=== PATIENT | male | born 1975 | race Hispanic/Latino ===

== ENCOUNTER 2019-01-03 15:30 | Emergency (ER) | payer MEDICARE, SELFPAY ==
[2019-01-03 16:04] LABS: #Basophils 0.1 thou/uL (0.0-0.2); #Eosinphils 0.5 thou/uL (0.0-0.7); #Lymphocytes 2.7 thou/uL (1.20-3.40); #Monocytes 0.6 thou/uL (0.11-0.59); #Neutrophils 5.1 thou/uL (1.40-6.50); %Eosinophils 5.4 % (0.0-10.0); %Lymphocytes 30.5 % (21.0-51.0); %Monocytes 6.4 % (0.0-10.0); %Neutrophils 56.7 % (42.0-75.0); Hemoglobin 11.4 g/dL (14.0-18.0); Mean Corpuscular HGB CONC 34.1 g/dL (32.0-36.0); Mean Corpuscular Hemoglobin 32.3 pg (27.0-31.0); Mean Corpuscular Volume 94.5 fL (78.0-98.0); Mean Platelet Volume 7.1 fL (7.4-10.4); Platelet Count 333 thou/uL (130-400); Red Blood Cell (RBC) Count 3.54 mill/uL (4.70-6.10); White Blood Cell (WBC) Count 8.9 thou/uL (4.8-10.8)
[2019-01-03 16:26] LABS: ALT (SGPT) 15 U/L (8-55); AST (SGOT) 27 U/L (5-34); Albumin 2.4 g/dL (3.5-5.0); Alkaline Phosphatase 89 U/L (40-110); Anion Gap 13 mmol/L (10-20); BUN (Urea Nitrogen) 54 mg/dL (8.9-20.6); Bilirubin, Total Less than 0.2 mg/dL (0.2-1.2); Calc. Creatinine Clearance 0 mL/min (70-130); Calcium 7.2 mg/dL (7.8-10.44); Carbon Dioxide 21 mmol/L (22-29); Chloride 109 mmol/L (98-107); Estimated GFR-MDRD 16; Globulin 3.1 g/dL (2.4-3.5); Glucose 171 mg/dL (70-105); Potassium 5.4 mmol/L (3.5-5.1); Protein, Total 5.5 g/dL (6.0-8.3); Sodium 138 mmol/L (136-145)
--- NOTE | 2019-01-07 13:42 | EKG ---
Test Reason : Blood Pressure : / mmHG Vent. Rate : 085 BPM Atrial Rate : 085 BPM P-R Int : 142 ms QRS Dur : 086 ms QT Int : 354 ms P-R-T Axes : 042 010 050 degrees QTc Int : 421 ms Normal sinus rhythm Normal ECG Confirmed by PRIYA FRASER ([id number]), senior technical editor MEREDITH HAGER ([id number] on 01/07/2019 1:41:21 PM Referred By: Confirmed By:PRIYA FRASER
== END 2019-01-03 16:54 | disposition home or self-care (01) ==
LOC: ERS 15:30
DX: E87.5 Hyperkalemia (principal); I12.9 Hypertensive chronic kidney disease with stage 1 through stage 4 chronic kidney disease, or unspecified chronic kidney disease; E11.22 Type 2 diabetes mellitus with diabetic chronic kidney disease; N18.4 Chronic kidney disease, stage 4 (severe); E78.5 Hyperlipidemia, unspecified; F31.9 Bipolar disorder, unspecified; F41.9 Anxiety disorder, unspecified; Z87.891 Personal history of nicotine dependence; Z79.4 Long term (current) use of insulin; Z79.899 Other long term (current) drug therapy
CPT/HCPCS: 36415; 80053; 84484; 85025; 93005

== ENCOUNTER 2019-01-20 16:32 | Emergency (ER) | payer SELFPAY ==
--- NOTE | 2019-01-20 17:05 | RAD ---
EXAM: Chest 2 views: HISTORY: Right-sided chest and rib pain COMPARISON: 12/25/2008 FINDINGS: There is a normal-sized cardiomediastinal silhouette. There is no evidence of consolidation, mass, or pleural effusion. The bones are unremarkable. IMPRESSION: No evidence of acute cardiopulmonary disease
--- NOTE | 2019-01-20 17:06 | RAD ---
EXAM: Right Rib series HISTORY: Right chest and rib pain COMPARISON: None FINDINGS: Multiple views of the right ribs shows no evidence of displaced rib fracture. No underlying pleural t hickening or pneumothorax are seen. IMPRESSION: 1. No evidence of displaced rib fracture.
[2019-01-20] MEDS ORDERED: HYDROcodone/Acetaminophen 10/325 mg Tablet ONE (17:27)
== END 2019-01-20 17:31 | disposition home or self-care (01) ==
LOC: ERS 16:32
DX: R07.81 Pleurodynia (principal); I10 Essential (primary) hypertension; F41.9 Anxiety disorder, unspecified; F31.9 Bipolar disorder, unspecified; E11.9 Type 2 diabetes mellitus without complications; E78.5 Hyperlipidemia, unspecified; Z87.891 Personal history of nicotine dependence; Z79.4 Long term (current) use of insulin; Z79.899 Other long term (current) drug therapy
CPT/HCPCS: 71046

== ENCOUNTER 2019-10-23 03:47 | Observation (INO) | payer MEDICAID, SELFPAY ==
[2019-10-23] MEDS ORDERED: Morphine 4 MG/ML VIAL ONE (04:06)
[2019-10-23] MEDS ORDERED: Ondansetron PF 4 MG/2 ML Vial ONE ×3 (04:07→10:52)
[2019-10-23 04:25] LABS: #Eosinphils 0.6 thou/uL (0.0-0.7); #Lymphocytes 1.7 thou/uL (1.20-3.40); #Monocytes 1.1 thou/uL (0.11-0.59); #Neutrophils 13.1 thou/uL (1.40-6.50); %Basophils 0.3 % (0.0-1.0); %Eosinophils 3.5 % (0.0-10.0); %Lymphocytes 10.2 % (21.0-51.0); %Monocytes 6.9 % (0.0-10.0); %Neutrophils 79.1 % (42.0-75.0); Hemoglobin 10.1 g/dL (14.0-18.0); Mean Corpuscular HGB CONC 32.2 g/dL (32.0-36.0); Mean Corpuscular Hemoglobin 29.7 pg (27.0-31.0); Mean Corpuscular Volume 92.4 fL (78.0-98.0); Platelet Count 286 thou/uL (130-400); RBC Distribution Width 13.9 % (11.5-14.5); Red Blood Cell (RBC) Count 3.41 mill/uL (4.70-6.10); White Blood Cell (WBC) Count 16.6 thou/uL (4.8-10.8)
[2019-10-23 05:11] LABS: ALT (SGPT) 10 U/L (8-55); AST (SGOT) 17 U/L (5-34); Alkaline Phosphatase 86 U/L (40-110); Anion Gap 25 mmol/L (10-20); BUN (Urea Nitrogen) 79 mg/dL (8.9-20.6); Bilirubin, Total 0.5 mg/dL (0.2-1.2); Calc. Creatinine Clearance 0 mL/min (70-130); Calcium 7.2 mg/dL (7.8-10.44); Carbon Dioxide 18 mmol/L (22-29); Chloride 100 mmol/L (98-107); Estimated GFR-MDRD 2; Glucose 259 mg/dL (70-105); Lipase 35 U/L (8-78); Potassium 4.6 mmol/L (3.5-5.1); Sodium 138 mmol/L (136-145)
[2019-10-23] MEDS ORDERED: Aspirin 325 MG TAB ONE ×2 (05:23→05:28)
[2019-10-23] MEDS ORDERED: Aspirin 300 MG Suppository ONE (05:28)
[2019-10-23 06:00] LABS: CKMB 7.5 ng/mL (0-6.6)
--- NOTE | 2019-10-23 07:47 | RAD ---
EXAM: Single view of the chest HISTORY: Chest pain COMPARISON: 08/22/2019 FINDINGS: Single view of the chest shows a normal sized cardiomediastinal silhouette. The dialysis c atheter and central venous catheter have been removed. Increased interstitial markings are stable. There is no evidence of consolidation, mass, or pleural effusion. The bones are unremarkable IMPRESSION: No evidence of acute cardiopulmonary disease
[2019-10-23 08:09] LABS: Troponin I 0.043 ng/mL (< 0.028)
[2019-10-23] MEDS ORDERED: Nitroglycerin 0.4 MG TAB 1 EACH ONE (08:48)
[2019-10-23] MEDS ORDERED: Morphine 2 MG/ML SYRINGE ONE (08:48)
[2019-10-23] MEDS: Morphine 2 MG/ML VIAL SLOW IVP PRN ×3 (08:54→21:21)
[2019-10-23] MEDS: Nitroglycerin 0.4 MG TAB (25 Tab Bottle) SL PRN ×6 (08:55→21:24)
[2019-10-23] MEDS ORDERED: Ondansetron PF 4 MG/2 ML Vial IVP PRN (10:36)
[2019-10-23] MEDS ORDERED: HumaLOG 300 UNITS/3 ML VIAL SC PRN (10:37)
[2019-10-23 10:51] LABS: Troponin I 0.045 ng/mL (< 0.028)
[2019-10-23] MEDS ORDERED: Acetaminophen 325 MG TAB ONE (10:52)
[2019-10-23] MEDS: Acetaminophen 325 MG TAB PO PRN (11:13)
--- NOTE | 2019-10-23 12:32 | PDOC.HHP ---
Hospitalist HPI - History of Present Illness chest pain History of Present Illness: This is a 44 year old male with past medical history of ESRD on peritoneal dialysis for the past one month, hypertension, diabetes who presented to the ER with chest pain. THe patient states that his chest pain started at 2:00 am this morning and woke him up from sleep. It was sharp, worst with taking a deep breath and located mostly in his ribs. He states typically when he gets this type of chest pain its relieved with sitting up or lifting his arms up. However this time persisted when he sat up. It was approximately an 8/10. The pain did radiate to his shoulders some. He denied tingling in his arm, palpitations, lightheadedness or dizziness. The patient has a history of hypertension, states his blood pressures are usually in the 150's, but the past few days it has been over 200 systolic in the morning. The patient states he is on peritoneal dialysis at night. He states that he had used increased fluid in his dialysate and thinks he probably wasn't removing all of the fluid. He has been compliant with his salt intake. However he states he recently found out he should be on a 2L fluid restriction and doesn't think he has been compliant with that. He has never had a stress test before. He does not smoke anymore. He denies fevers or chills ED Course: The patient's vitals were unremarkable except for a BP of 180/100. EKG showed sinus tachycardic. The patient was given aspirin, morphine and nitroglycerin with improvement in his pain to a 3/10. Chest X ray showed no acute disease. Troponin was slightly elevated. Hospitalist ROS - Review of Systems Constitutional: denies: fever, chills Respiratory: reports: shortness of breath. denies: cough, dry Cardiovascular: reports: chest pain. denies: palpitations, orthopnea Gastrointestinal: denies: nausea, vomiting, abdominal pain, diarrhea, constipation Genitourinary: denies: dysuria, frequency Musculoskeletal: reports: shoulder pain (bilateral rib pain/shoulder pain) Neurological: denies: weakness, numbness - Medication Medications: Active Medications Generic Name Dose Route Start Last Admin Trade Name Freq PRN Reason Stop Dose Admin Acetaminophen 650 mg 10/23/19 10:36 10/23/19 11:13 Tylenol PO 650 mg Q4H PRN Administration Headache/Fever/Mild Pain (1-3) Morphine Sulfate 2 mg 10/23/19 08:29 10/23/19 08:54 Morphine SLOW IVP 2 mg Q4H PRN Administration Chest Pain Nitroglycerin 0.4 mg 10/23/19 08:29 10/23/19 11:03 Nitrostat SL 1 tab Q5MIN PRN Administration Chest Pain Ondansetron HCl 4 mg 10/23/19 10:36 10/23/19 11:13 Zofran IVP 4 mg Q6H PRN Administration Nausea/Vomiting Hospitalist History - Past Medical History Other Medical History: Type I diabetes ESRD recently diagnosed Hypertension Bipolar Anxiety - Past Surgical History Other Surgical History: Tonsillectomy Fistula surgery - Family History Other Family History: Mom had stent revascularization, diabetes, hypertension Dad had diabetes Sisters had diabetes - Social History Smoking Status: Former smoker (former cocaine user, former user of tobacco snuff , quit five years ago. Used marijuana and quit last year) Alcohol: reports: None - Exam General Appearance: NAD, awake alert Eye: PERRL, anicteric sclera ENT: normocephalic atraumatic, no oropharyngeal lesions Neck: no JVD Heart: RRR, no murmur, no gallops, no rubs Respiratory - other findings: bilateral crackles, diminished breath sounds Gastrointestinal: soft, non-tender, non-distended, normal bowel sounds Gastrointestinal - other findings: peritoneal dialysis catheter in place, no signs of infection Extremities: no cyanosis, no clubbing, no edema Skin: normal turgor, no lesions, no rashes Neurological: cranial nerve grossly intact, normal sensation to touch, no focal deficits, no new deficit Musculoskeletal: normal tone, normal strength, no muscle wasting Musculoskeletal - other findings: palpable fistula right antecubital fossa Psychiatric: normal affect, normal behavior, A&O x 3 Hospitalist Results - Labs Result Diagrams: 10/23/19 04:13 10/23/19 04:13 Lab results: WBC 16.6 thou/uL (4.8-10.8) H 10/23/19 04:13 Hgb 10.1 g/dL (14.0-18.0) L 10/23/19 04:13 Hct 31.5 % (42.0-52.0) L 10/23/19 04:13 MCV 92.4 fL (78.0-98.0) 10/23/19 04:13 Plt Count 286 thou/uL (130-400) 10/23/19 04:13 Neutrophils % 79.1 % (42.0-75.0) H 10/23/19 04:13 Sodium 138 mmol/L (136-145) 10/23/19 04:13 Potassium 4.6 mmol/L (3.5-5.1) 10/23/19 04:13 Chloride 100 mmol/L (98-107) 10/23/19 04:13 Carbon Dioxide 18 mmol/L (22-29) L 10/23/19 04:13 BUN 79 mg/dL (8.9-20.6) H 10/23/19 04:13 Creatinine 20.84 mg/dL (0.7-1.3) H 10/23/19 04:13 Glucose 259 mg/dL (70-105) H 10/23/19 04:13 Calcium 7.2 mg/dL (7.8-10.44) L 10/23/19 04:13 Total Bilirubin 0.5 mg/dL (0.2-1.2) 10/23/19 04:13 AST 17 U/L (5-34) 10/23/19 04:13 ALT 10 U/L (8-55) 10/23/19 04:13 Alkaline Phosphatase 86 U/L (40-110) 10/23/19 04:13 CK-MB (CK-2) 7.5 ng/mL (0-6.6) H* 10/23/19 04:13 Troponin I 0.045 ng/mL (< 0.028) H 10/23/19 10:15 B-Natriuretic Peptide 631.8 pg/mL (0-100) H 10/23/19 04:10 Serum Total Protein 6.0 g/dL (6.0-8.3) 10/23/19 04:13 Albumin 3.0 g/dL (3.5-5.0) L 10/23/19 04:13 Lipase 35 U/L (8-78) 10/23/19 04:13 - EKG Interpretation EKG: sinus tachycardia Hospitalist H&P A/P - Plan Plan: This is a 44 year old male who presented with chest pain, hypertensive emergency , fluid overload Chest pain - possibly from pulmonary edema Hypertensive urgency - the patient likely has chest pain from mild pulmonary edema given elevated BP - trend troponins, monitor on telemetry - check ECHO - will have cardiology evaluate whether any additional cardiac workup may be beneficial given risk factors and improvement with morphine and nitro - continue nifedipine ESRD - patient to get peritoneal dialysis today Bipolar - continue depakote Type II diabetes - continue NPH - sliding scale achs Diet: NPO after midnight DVT prophylaxis: heparin SC Code status: full code
[2019-10-23] MEDS ORDERED: Furosemide 40 MG/4 ML VIAL SLOW IVP SCH (12:45)
--- NOTE | 2019-10-23 13:09 | CON ---
DATE OF CONSULTATION: 10/23/2019 CONSULTING PHYSICIAN: The ER doctor. REASON FOR CONSULTATION: End-stage renal disease evaluation. REASON FOR ADMISSION: Chest pain, shortness of breath. HISTORY OF PRESENT ILLNESS: This is a 44-year-old male with history of end-stage renal disease, type-1 diabetes, hypertension, hyperlipidemia, came to the hospital with chest pain. The patient was recently started on PD dialysis and was having dialysis. At around 02:00 a.m., he started having chest pain, shortness of breath. He has been having some shoulder aches too. He is being admitted for cardiac evaluation. He gets PD at night. PAST MEDICAL HISTORY: Positive for; 1. Type-1 diabetes. 2. Hypertension. 3. Hyperlipidemia. 4. Anxiety. 5. Bipolar disorder. PAST SURGICAL HISTORY: Tonsillectomy. HOME MEDICATIONS: Reviewed. ALLERGIES: IODINE. SOCIAL HISTORY: History of smoking and alcohol in the past. FAMILY HISTORY: Positive for diabetes. REVIEW OF SYSTEMS: The following complete review of systems was negative, unless otherwise mentioned in the HPI or below: CONSTITUTIONAL: Weight loss or gain, ability to conduct usual activities. SKIN: Rash, itching. EYES: Double vision, pain. ENT/MOUTH: Nose bleeding, neck stiffness, pain, tenderness. CARDIOVASCULAR: Palpitations, dyspnea on exertion, orthopnea. RESPIRATORY: Shortness of breath, wheezing, cough, hemoptysis, fever or night sweats. GASTROINTESTINAL: Poor appetite, abdominal pain, heartburn, nausea, vomiting, constipation, or diarrhea. GENITOURINARY: Urgency, frequency, dysuria, nocturia. MUSCULOSKELETAL: Pain, swelling. NEUROLOGIC/PSYCHIATRIC: Anxiety, depression. ALLERGY/IMMUNOLOGIC: Skin rash, bleeding tendency. PHYSICAL EXAMINATION: GENERAL: This is a well-built male, in no apparent distress. VITAL SIGNS: Reviewed. HEENT: Atraumatic, normocephalic. Oral mucosa moist. NECK: Supple. CV: S1, S2 heard. Rate and rhythm regular. RESPIRATORY: Clear. GI: Abdomen is soft. MUSCULOSKELETAL: No tenderness. No edema. DERMATOLOGIC: No skin rash. NEUROLOGIC: Alert and awake. PSYCHIATRIC: Mood and affect normal. LABORATORY DATA: Hemoglobin is 10.1. Potassium 4.6, BUN is 79, creatinine is . ASSESSMENT AND PLAN: 1. End-stage renal disease. We will continue on peritoneal dialysis as tolerated. The patient remains fluid overloaded. We will try 2.5 dextrose solution. If no improvement, we will use the high-concentrated solution of 4.25. Limit fluid intake. 2. Acidosis. 3. History of hypertension. 4. Elevated BNP. 5. Fluid overload. 6. Cardiorenal syndrome. 7. Anemia of chronic disease. 8. Hypoalbuminemia. We will limit fluid intake and we will attempt to have ultrafiltration with dialysis. Job ID: [id number]
[2019-10-23 16:00] VITALS: BMI 32.2
[2019-10-23] MEDS ORDERED: hydrALAZINE 20 MG/ML VIAL SLOW IVP PRN (20:01)
[2019-10-23] MEDS ORDERED: Dextrose 50% Abboject 50 ML SYRINGE IVP PRN (20:06)
[2019-10-23] MEDS ORDERED: Dextrose 5% in Water 1,000 ML IV PRN (20:06)
[2019-10-23] MEDS ORDERED: Non-Formulary Item 1 EACH (Levemir Flexpen [Levemir Flexpen] 25 UNITS) SC SCH (21:00)
[2019-10-23] MEDS: Heparin 5,000 UNITS/ML VIAL SC SCH (21:25)
[2019-10-23] MEDS: Atorvastatin Calcium 40 MG TAB PO SCH (21:25)
[2019-10-23] MEDS: Insulin Glargine 25 UNITS in Pre-Filled Syringe 1 EACH SC SCH (21:26)
[2019-10-23] MEDS: NPH, Human Insulin Isophane 300 UNIT/3 ML VIAL SC SCH (21:36)
[2019-10-24 00:45] LABS: HBSAg Index 0.28 S/CO (0-0.99); Hep B Surf Ag Non-Reactive S/CO (NonReactive)
[2019-10-24 04:49] LABS: #Basophils 0.1 thou/uL (0.0-0.2); #Eosinphils 0.8 thou/uL (0.0-0.7); #Lymphocytes 3.3 thou/uL (1.20-3.40); #Monocytes 1.1 thou/uL (0.11-0.59); #Neutrophils 6.9 thou/uL (1.40-6.50); %Basophils 0.8 % (0.0-1.0); %Eosinophils 6.5 % (0.0-10.0); %Monocytes 8.8 % (0.0-10.0); %Neutrophils 56.9 % (42.0-75.0); Hemoglobin 9.5 g/dL (14.0-18.0); Mean Corpuscular HGB CONC 32.7 g/dL (32.0-36.0); Mean Corpuscular Hemoglobin 30.5 pg (27.0-31.0); Mean Corpuscular Volume 93.4 fL (78.0-98.0); Mean Platelet Volume 7.9 fL (7.4-10.4); Platelet Count 303 thou/uL (130-400); Red Blood Cell (RBC) Count 3.11 mill/uL (4.70-6.10); White Blood Cell (WBC) Count 12.1 thou/uL (4.8-10.8)
[2019-10-24 05:10] LABS: Anion Gap 18 mmol/L (10-20); BUN (Urea Nitrogen) 80 mg/dL (8.9-20.6); Calc. Creatinine Clearance 6 mL/min (70-130); Calcium 7.1 mg/dL (7.8-10.44); Carbon Dioxide 25 mmol/L (22-29); Chloride 98 mmol/L (98-107); Estimated GFR-MDRD 2; Glucose 241 mg/dL (70-105); Potassium 4.2 mmol/L (3.5-5.1); Sodium 137 mmol/L (136-145)
[2019-10-24] MEDS ORDERED: Lisinopril 10 MG TAB PO SCH (09:00)
--- NOTE | 2019-10-24 13:16 | NM ---
Radionucleotide stress and rest myocardial perfusion scan with CT attenuation correction and SPECT im aging Left ventricular wall motion evaluation and ejection fraction HISTORY: Chest pain. FINDINGS: Lexiscan protocol. There is very heterogeneous uptake of radiotracer throughout the left ve ntricular myocardium on the stress and rest images. No focal perfusion defect or reversibility reliably demonstrated. QGS analysis of gated SPECT images shows global hypokinesis most pronounced at the septum. Ejection f raction calculated at 46%. IMPRESSION : No reliable scintigraphic evidence of ischemia. Borderline ejection fraction of 46 %
[2019-10-24] MEDS ORDERED: Regadenoson 0.4 MG/5 ML SYRINGE ONE (13:19)
--- NOTE | 2019-10-24 13:40 | PRG ---
DATE OF SERVICE: 10/24/2019 SUBJECTIVE: Patient was seen and examined at bedside and overnight events noted. Patient denies any shortness of breath or chest pain or palpitation. No history of nausea or vomiting or diarrhea or fever or chills or cramps. OBJECTIVE: GENERAL: This is a well-built male, in no apparent distress. VITAL SIGNS: Temperature 98.4. Heart rate 92. Respiratory rate 16. Blood pressure 173/92. HEENT: Atraumatic, normocephalic. Oral mucosa is moist NECK: Supple. CARDIOVASCULAR: S1, S2 heard. Rate and rhythm regular. RESPIRATORY: Clear to auscultation. GASTROINTESTINAL: Abdomen is soft. MUSCULOSKELETAL: No tenderness. No edema. DERMATOLOGIC: No skin rash. NEUROLOGIC: Alert and awake and oriented X3. No focal neurologic deficits. Moving all the extremities. PSYCHIATRIC: Mood and affect normal. LABORATORY DATA: Potassium 4.2, BUN is 80, creatinine is 2.31. ASSESSMENT AND PLAN: 1. End-stage renal disease. Continue on peritoneal dialysis. We will try 4.25 dextrose solution today. 2. Acidosis. 3. Hypertension. 4. Fluid overload. 5. Cardiorenal syndrome. 6. Anemia of chronic disease. 7. Hypoalbuminemia. We will continue on dialysis as tolerated. We will increase the solution. We will also keep on fluid restriction. Job ID: [id number]
--- NOTE | 2019-10-24 15:03 | CT ---
CT chest noncontrast HISTORY: Pleuritic chest pain. Shoulder pain. FINDINGS: At the dependent portion of each lung base, there is atelectasis with some component of air bronchograms. No lobar consolidation. No pleural fluid or pneumothorax. Lack of contrast limits evaluation of the soft tissues. Nonenlarged, nonspecific reactive appearing l ymph nodes are scattered about the mediastinum. No bulky adenopathy. Old healed right posterior rib fractures are apparent. IMPRESSION : Nonspecific bibasilar atelectasis. No diagnosable pathologic process is apparent.
--- NOTE | 2019-10-24 17:46 | PDOC.HOSPP ---
- Subjective Encounter Date: 10/24/19 Encounter Time: 06:00 Subjective: THe patient had recurrent chest pain this morning, radiating to his left shoulder. He states it was worst while taking a deep breath . Stress test negative. CT chest unremarkable. - Objective Vital Signs & Weight: Vital Signs (12 hours) Temp Pulse Resp BP Pulse Ox 10/24/19 15:01 98.0 F 88 14 142/75 H 97 10/24/19 07:40 98.4 F 92 16 191/93 H 95 Weight Weight 204 lb 14.4 oz I&O: 10/23/19 10/24/19 10/25/19 06:59 06:59 06:59 Intake Total 360 Output Total 0 Balance 360 Result Diagrams: 10/24/19 04:17 10/24/19 04:17 Additional Labs: Accuchecks 10/24/19 10/23/19 10/23/19 05:50 21:10 16:56 POC Glucose 234 H 165 H 148 H Hospitalist ROS - Review of Systems Constitutional: denies: fever, chills - Medication Medications: Active Medications Generic Name Dose Route Start Last Admin Trade Name Freq PRN Reason Stop Dose Admin Acetaminophen 650 mg 10/23/19 10:36 10/23/19 11:13 Tylenol PO 650 mg Q4H PRN Administration Headache/Fever/Mild Pain (1-3) Atorvastatin Calcium 80 mg 10/23/19 21:00 10/23/19 21:25 Lipitor PO 80 mg HS DLEILAH Administration Heparin Sodium (Porcine) 5,000 units 10/23/19 21:00 10/23/19 21:25 Heparin SC 5,000 units TID DELILAH Administration Insulin Glargine 25 units/ 0.25 mls @ 0 mls/hr 10/23/19 21:00 10/23/19 21:26 Miscellaneous Medication SC Not Given HS DELILAH As Directed Insulin Human NPH 22 unit 10/23/19 21:00 10/23/19 21:36 Humulin N SC Not Given QPM DELILAH Morphine Sulfate 2 mg 10/23/19 08:29 10/23/19 21:21 Morphine SLOW IVP 2 mg Q4H PRN Administration Chest Pain Nitroglycerin 0.4 mg 10/23/19 08:29 10/23/19 21:24 Nitrostat SL 1 tab Q5MIN PRN Administration Chest Pain Ondansetron HCl 4 mg 10/23/19 10:36 10/23/19 11:13 Zofran IVP 4 mg Q6H PRN Administration Nausea/Vomiting Quetiapine Fumarate 100 mg 10/23/19 21:00 10/23/19 21:29 Seroquel PO 100 mg HS DELILAH Administration - Exam General Appearance: NAD, awake alert Eye: PERRL, anicteric sclera ENT: normocephalic atraumatic, no oropharyngeal lesions Neck: no JVD Heart: RRR, no murmur, no gallops, no rubs Respiratory: CTAB, no wheezes, no rales, no ronchi Gastrointestinal: soft, non-tender, non-distended, normal bowel sounds Extremities: no cyanosis, no clubbing, no edema Hosp A/P - Plan ECHO; EF 40-45% Chest CT: old healed right posterior rib fractures. This is a 44 year old male who presented with chest pain, hypertensive emergency , fluid overload Chest pain - possibly from pulmonary edema - troponins peaked at 0.45. Stress test negative - patient to get another peritoneal dialysis session with change in solution tonight per nephrology. Monitor for one more day - Hypertensive urgency Chronic systolic heart failure - continue nifedipine - started on lisinopril 10 mg daily - ECHO showed an EF of 45% ESRD -continue dialysis Bipolar - continue depakote Type II diabetes - continue NPH - sliding scale achs Dispo: possibly d/c tomorrow
[2019-10-24] MEDS: Calcium Carbonate 500 MG ChewTAB PO SCH ×2 (18:19→18:35)
[2019-10-24] MEDS: Sevelamer Carbonate 800 MG TAB PO SCH ×3 (18:19→18:36)
[2019-10-24] MEDS: Acetaminophen 325 MG TAB PO PRN ×2 (18:19→21:16)
[2019-10-24] MEDS: Folic Acid/Vit B Comp W-C PO SCH (18:36)
[2019-10-24] MEDS: Heparin 5,000 UNITS/ML VIAL SC SCH ×3 (18:36→21:09)
[2019-10-24] MEDS: Aspirin 81 mg Enteric Coated Tablet PO SCH (18:36)
[2019-10-24] MEDS: NPH, Human Insulin Isophane 300 UNIT/3 ML VIAL SC SCH ×2 (18:38→21:12)
[2019-10-24] MEDS: NIFEdipine XL 60 MG TAB PO SCH (18:38)
[2019-10-24] MEDS: Atorvastatin Calcium 40 MG TAB PO SCH (21:11)
[2019-10-24] MEDS: Insulin Glargine 25 UNITS in Pre-Filled Syringe 1 EACH SC SCH (21:13)
[2019-10-25 04:29] LABS: Hemoglobin 9.8 g/dL (14.0-18.0); Mean Corpuscular HGB CONC 32.1 g/dL (32.0-36.0); Mean Corpuscular Hemoglobin 29.8 pg (27.0-31.0); Mean Corpuscular Volume 92.8 fL (78.0-98.0); Mean Platelet Volume 7.9 fL (7.4-10.4); Platelet Count 324 thou/uL (130-400); RBC Distribution Width 13.7 % (11.5-14.5); White Blood Cell (WBC) Count 9.8 thou/uL (4.8-10.8)
[2019-10-25 04:52] LABS: Anion Gap 22 mmol/L (10-20); BUN (Urea Nitrogen) 77 mg/dL (8.9-20.6); Calc. Creatinine Clearance 6 mL/min (70-130); Calcium 6.9 mg/dL (7.8-10.44); Carbon Dioxide 22 mmol/L (22-29); Chloride 98 mmol/L (98-107); Estimated GFR-MDRD 2; Glucose 483 mg/dL (70-105); Potassium 4.6 mmol/L (3.5-5.1); Sodium 137 mmol/L (136-145)
[2019-10-25] MEDS ORDERED: HumaLOG 300 UNITS/3 ML VIAL SC PRN (06:50)
[2019-10-25] MEDS ORDERED: Carvedilol 3.125 MG TAB PO SCH (09:00)
[2019-10-25] MEDS ORDERED: Albuterol Sulfate 1.25 MG/3 ML NEB IPPB SCH (09:15)
[2019-10-25] MEDS: NPH, Human Insulin Isophane 300 UNIT/3 ML VIAL SC SCH (09:17)
[2019-10-25] MEDS: Sevelamer Carbonate 800 MG TAB PO SCH ×2 (09:18→12:02)
[2019-10-25] MEDS: NIFEdipine XL 60 MG TAB PO SCH (09:18)
[2019-10-25] MEDS: Calcium Carbonate 500 MG ChewTAB PO SCH ×2 (09:18→12:02)
[2019-10-25] MEDS: Aspirin 81 mg Enteric Coated Tablet PO SCH (09:18)
[2019-10-25] MEDS: Folic Acid/Vit B Comp W-C PO SCH (09:18)
[2019-10-25] MEDS: Heparin 5,000 UNITS/ML VIAL SC SCH ×2 (09:18→17:27)
--- NOTE | 2019-10-25 09:52 | CON ---
DATE OF CONSULTATION: 10/24/2019 ADDENDUM: INDICATION FOR CONSULTATION: A 44-year-old patient with end-stage renal disease, on peritoneal dialysis, who had complained of some sharp pains in his chest. We were asked to see him due to the complaints of chest pain. HISTORY OF PRESENT ILLNESS: This is a very unfortunate 44-year-old gentleman who has been on peritoneal dialysis for the last several months, since August he said. He does have a history of diabetes and hypertension, but did not have any history of known coronary artery disease in the past. He described his pain as being sharp and stabbing pain, which radiated to the shoulder areas, underneath his left chest and underneath the left axillary area and then he complained of some heaviness and pressure in his upper abdominal area. The upper abdominal discomfort he does get after he has his peritoneal dialysis and once it drains out then the discomfort resolves. He has not had the sharp stabbing pain. He also says that the pain is worse with inspiration. His cardiac enzymes are unremarkable for any acute myocardial infarction. They are indeterminate at 0.42 and 0.45. He did have an echocardiogram, which showed ejection fraction of 40% to 45%. He also had a stress test today, which showed ejection fraction of about 46%, but no evidence of underlying ischemia. Since his pain is certainly atypical with sharp and stabbing pains, it does not appear to be cardiac in nature. I did inform the patient that should he continue to have further discomfort, he will need to contact us and not just ignore the pain as occasionally the stress test may be abnormal or may be false negative in about 10 to 15% of people. He did not have any other significant problems since being in the hospital. He says he still has some mild soreness, but there are no acute EKG changes that would indicate ischemia. For the remainder of his history and physical, please refer to the notes dictated by my nurse practitioner. PAST MEDICAL HISTORY: Please refer to the notes dictated by my nurse practitioner. SOCIAL HISTORY: Please refer to the notes dictated by my nurse practitioner. FAMILY HISTORY: Please refer to the notes dictated by my nurse practitioner. REVIEW OF SYSTEMS: Please refer to the notes dictated by my nurse practitioner. ALLERGIES: PLEASE REFER TO THE NOTES DICTATED BY MY NURSE PRACTITIONER. MEDICATIONS: Please refer to the notes dictated by my nurse practitioner. PHYSICAL EXAMINATION: Please refer to the notes dictated by my nurse practitioner. ASSESSMENT AND PLAN: 1. This is relatively a middle-aged gentleman with multiple medical problems, complained of some chest discomfort, which did not appear to be cardiac in nature. However, should he have further episodes of chest discomfort, I would advise him to undergo cardiac catheterization despite having a negative stress test since he has risk factors of coronary artery disease and may have 3-vessel disease due to his history of diabetes and hypertension. At this time, he remains relatively stable. His blood pressure has actually improved also since being in the hospital. He should be relatively safe for discharge based upon cardiac status. 2. History of diabetes, which will be dealt with by the primary care service. 3. History of his end-stage renal disease. He has been followed. He will continue his peritoneal dialysis, eventually may need to undergo hemodialysis, but at this time remains relatively stable. 4. Slight elevation of the cardiac enzymes, which still would be indeterminate and most likely this indicates a type 2 myocardial infarction perhaps just from overall end-stage renal disease, his peritoneal dialysis and hypertension. With the hypertension being significantly elevated, he may have had some slight leak of the cardiac enzymes. Should he have any further problems, we will be more than happy to see the patient back, but if he has further symptoms, I did discuss with him he should give us a call and then we can pursue this further and he is not to ignore it. He will need to keep his blood pressure under good control also. As far as his diabetes, his blood sugar was elevated about 260. Job ID: [id number]
--- NOTE | 2019-10-25 10:54 | CON ---
DATE OF CONSULTATION: PRIMARY CARE DOCTOR: [facility]. PRIMARY CHILDREN'S MINISTRY DIRECTOR: Dr. Matamoros. PRIMARY BOILING OFF WINDER: Dr. Sowmya Lei. REASON FOR CARDIOLOGY CONSULT: Chest pain. HISTORY OF PRESENT ILLNESS: Mr. Gibbs is a 44-year-old male with a significant history of end-stage renal disease with peritoneal dialysis everyday for 1 month, hypertension, hyperlipidemia, diabetes, depression, and bipolar. The patient was here two months ago for the end-stage renal disease. The patient had an AV fistula access in the right arm and the patient also has PD access. The patient started having PD every night for 1 month now. About 1 week ago, the patient started having swelling on the right side for 3 to 4 days. Once the patient's PD solution was changed to a different concentration, the patient's swelling has gone away. The patient did not have any shortness of breath, dizziness, lightheadedness, or any other cardiac complaints at that time. Around 2 a.m. on the Wednesday, the patient started having sharp pain in bilateral shoulder blades and the left lateral side of his torso around the spleen area, patient started having sharp pain, which radiated to the left chest, which also was sharp pain, which was alleviated with movement and taking even, regular breaths. The patient also started having pressure to the epigastric area, although after PD solution was drained, the patient was still having the pressure of that site. Due to the symptom, the patient decided to present to the emergency department for further evaluation and treatment. He had nitro and Tylenol at the ER, which improved the pain to the shoulder and the left torso sharp pain. However, whenever the patient tried to take a deep breath, the patient was still having pain in the left torso site, the lateral side, especially left torso site. The patient has not seen any lacemaker before. The patient denied any shortness of breath, dizziness, lightheadedness, or any cardiac complaints during the episode. MEDICAL HISTORY: Type 1 diabetes, end-stage renal disease with peritoneal dialysis every night, hypertension, hyperlipidemia, bipolar, anxiety. PAST SURGICAL HISTORY: Tonsillectomy, fistula surgery. FAMILY HISTORY: The patient's mother had a stent placement at the age of less than 60 years old, diabetes, hypertension. The patient's father had a history of diabetes. He mentioned sister has a history of diabetes. SOCIAL HISTORY: He is . He has one child, who is living well. He is ex-smoker, quit in 2014. He used to smoke 1 to 2 packs a day, and he also sniffed, he quit a couple of years ago. He has ex-EtOH abuse, he quit about 5 years ago also. He used marijuana, which he quit a couple of months ago. ALLERGIES: HE IS ALLERGIC TO IODINE AND SHELLFISH. HOME MEDICATIONS: 1. Humalog as sliding scale. 2. Tums 1000 mg three times a day. 3. Renvela 800 mg three times a day. 4. Nifedipine 60 mg once a day. 5. Protonix 40 mg once a day. 6. Insulin NovoLog 22 units every p.m. 7. Folic acid and vitamin D one tablet once a day. 8. Seroquel 100 mg once a day. 9. Insulin NovoLog 16 units every morning. 10. Depakote 1000 mg once a day for the seizure. REVIEW OF SYSTEMS: A 12-point review of systems negative unless otherwise mentioned in HPI. PHYSICAL EXAMINATION: VITAL SIGN: Blood pressure 191/93, temperature 98.4, pulse is 92 and sinus rhythm, respiratory rate 16, O2 saturation 95% on 1 L nasal cannula. GENERAL: The patient is alert and oriented x4, not in acute distress, except when the patient takes a deep breath, the patient complains of sharp pain in the left lateral torso site. HEAD: Normocephalic and atraumatic. EYES: Extraocular muscle movement intact. ENT AND MOUTH: Oral and nasal mucosa moist without lesion. NECK: Supple. Normal range of motion. No JVD. RESPIRATORY: Clear to auscultate bilaterally, but the patient cannot take a deep breath due to the sharp pain in the left torso site. CARDIOVASCULAR: Regular rate and rhythm. Normal S1 and S2. There is no S3 or S4. No significant murmur, heaves, or thrill noted. 2+ pulses in the bilateral upper and lower extremities. No edema in the lower extremities. Carotid pulses are present without bruit or thrill. ABDOMEN: Soft, nontender. No mass to palpation. Bowel sounds are present. SKIN: Warm and dry. No lesion, rash, or erythema noted. MUSCULOSKELETAL: The patient is able to move all extremities without difficulty. The patient denied claudication. EXTREMITIES: The patient has an AV fistula in the left upper extremity present with bruit and thrill. NEUROLOGIC: The patient is alert and oriented x4, nonfocal. PSYCHIATRIC: The patient's mood is appropriate. LABORATORY DATA: WBC 12.1, hemoglobin 9.5, hematocrit 29.0, platelets 303. Sodium 137, potassium 4.2, BUN is 80, creatinine 21.31, glucose 241, calcium 7.1, AST 17, ALT 10, CK-MB 4.0. Troponin 0.043, 0.045, 0.041. BNP 631.8. Albumin is 3.0. Chest CT scan is done today for shoulder pain and pleuritic chest pain, nonspecific vascular atelectasis, no diagnosable pathologic process is appropriate. The patient had echocardiogram done today with EF of 40% to 45%, mild LVH, mild to moderate LAE, and mild mitral valve regurgitation, mild tricuspid regurgitation. The patient had a stress test done today, no reversible ischemia with EF of 46%. ASSESSMENT AND PLAN: 1. Chest pain in adult. The patient had a stress test done, which showed no reversible ischemia. Possibly, the patient's symptom is musculoskeletal etiology. However, due to the history of hypertension and ex-smoker and also type 1 diabetes, if the patient continued having chest pain, pressure, and also any other cardiac complaints, the patient might undergo cardiac catheterization as an outpatient, but however, at this moment, the patient is stable. Once the patient's vital signs are stable, patient can go home, can be discharged. 2. Hypertension. The patient's blood pressure is very elevated today. We would like to adjust medications as appropriate. 3. Hyperlipidemia, the patient is on Lipitor at this moment. 4. Type 1 diabetes. The patient is on insulin. 5. End-stage renal disease, which is managed by Dr. Matamoros. 6. Anxiety. The patient's emotional status is stable at this moment. Thank you very much for Cardiology Service to participate in the care of this patient. We will follow along the patient's care team and make further recommendations as appropriate. Job ID: [id number]
--- NOTE | 2019-10-25 12:14 | PRG ---
DATE OF SERVICE: 10/25/2019 SUBJECTIVE: Patient was seen and examined at bedside and overnight events noted. Patient denies any shortness of breath or chest pain or palpitation. No history of nausea or vomiting or diarrhea or fever or chills or cramps. OBJECTIVE: GENERAL: This is a well-built male, in no apparent distress. VITAL SIGNS: Temperature 97.8. Heart rate 85. Respiratory rate 16. Blood pressure 167/89. HEENT: Atraumatic, normocephalic. Oral mucosa is moist NECK: Supple. CARDIOVASCULAR: S1, S2 heard. Rate and rhythm regular. RESPIRATORY: Clear to auscultation. GASTROINTESTINAL: Abdomen is soft. MUSCULOSKELETAL: No tenderness. No edema. DERMATOLOGIC: No skin rash. NEUROLOGIC: Alert and awake and oriented X3. No focal neurologic deficits. Moving all the extremities. PSYCHIATRIC: Mood and affect normal. LABORATORY DATA: Potassium 4.6, BUN is 77, and creatinine is 21.3. ASSESSMENT AND PLAN: 1. End-stage renal disease, on peritoneal dialysis, had 2500 UF with solution, but his sugars remains elevated, which we will limit the ultrafiltration. 2. Acidosis. 3. Hypertension. 4. Fluid overload. 5. Cardiorenal syndrome. 6. Anemia of chronic disease. 7. Hypoalbuminemia. 8. Hypocalcemia. We will add Tums to his regimen. We will follow. Job ID: [id number]
--- NOTE | 2019-10-25 15:51 | PDOC.CPN ---
- Subjective Date: 10/25/19 Time: 16:46 Interval history: The pt seen and examined. No overnight events. No cardiac complaints. - Objective Allergies/Adverse Reactions: Allergies Allergy/AdvReac Type Severity Reaction Status Date / Time iodine Allergy Severe Verified 06/23/19 22:04 shellfish derived Allergy Intermediate Verified 06/23/19 22:04 Visit Medications: Current Medications Acetaminophen (Tylenol) 650 mg PO Q4H PRN PRN Reason: Headache/Fever/Mild Pain (1-3) Last Admin: 10/24/19 21:16 Dose: 650 mg Aspirin (Ecotrin) 81 mg PO DAILY [facility] Last Admin: 10/25/19 09:18 Dose: 81 mg Atorvastatin Calcium (Lipitor) 80 mg PO [facility] Last Admin: 10/24/19 21:11 Dose: 80 mg Calcium Carbonate (Tums) 1,000 mg PO TID-[facility] Last Admin: 10/25/19 12:02 Dose: 1,000 mg Carvedilol (Coreg) 3.125 mg PO BID [facility] Last Admin: 10/25/19 09:19 Dose: 3.125 mg Dextrose/Water (Dextrose 50%) 25 gm IVP PRN PRN PRN Reason: HYPOGLYCEMIA PROTOCOL Divalproex Sodium (Depakote Er) 1,000 mg PO DAILY [facility] Last Admin: 10/25/19 09:18 Dose: 1,000 mg Glucagon (Glucagon) 1 mg IM PRN PRN PRN Reason: HYPOGLYCEMIA PROTOCOL Heparin Sodium (Porcine) (Heparin) 5,000 units SC TID [facility] Last Admin: 10/25/19 09:18 Dose: 5,000 units Hydralazine HCl (Apresoline) 10 mg SLOW IVP Q4H PRN PRN Reason: SBP Greater Than 180 Insulin Glargine 25 units/ (Miscellaneous Medication) 0.25 mls @ 0 mls/hr SC [facility] Last Admin: 10/24/19 21:13 Dose: Not Given Dextrose/Water (D5w) 1,000 mls @ 0 mls/hr IV INF PRN PRN Reason: HYPOGLYCEMIA PROTOCOL Insulin Human Lispro (Humalog) 0 units SC .MODERATE SLIDING SC PRN; Protocol PRN Reason: MODERATE SLIDING SCALE Last Admin: 10/25/19 07:07 Dose: 10 unit Insulin Human NPH (Humulin N) 16 unit SC QAM [facility] Last Admin: 10/25/19 09:17 Dose: 16 unit Insulin Human NPH (Humulin N) 26 unit SC [facility] Isosorbide Mononitrate (Imdur Er) 30 mg PO DAILY [facility] Last Admin: 10/25/19 09:18 Dose: 30 mg Morphine Sulfate (Morphine) 2 mg SLOW IVP Q4H PRN PRN Reason: Chest Pain Last Admin: 10/23/19 21:21 Dose: 2 mg Nifedipine (Procardia Xl) 60 mg PO DAILY [facility] Last Admin: 10/25/19 09:18 Dose: 60 mg Nitroglycerin (Nitrostat) 0.4 mg SL Q5MIN PRN PRN Reason: Chest Pain Last Admin: 10/23/19 21:24 Dose: 1 tab Ondansetron HCl (Zofran) 4 mg IVP Q6H PRN PRN Reason: Nausea/Vomiting Last Admin: 10/23/19 11:13 Dose: 4 mg Pantoprazole Sodium (Protonix) 40 mg PO DAILY [facility] Last Admin: 10/25/19 09:19 Dose: 40 mg Quetiapine Fumarate (Seroquel) 100 mg PO [facility] Last Admin: 10/24/19 21:12 Dose: 100 mg Sevelamer Carbonate (Renvela) 800 mg PO TID-WM [facility] Last Admin: 10/25/19 12:02 Dose: 800 mg Sodium Chloride (Flush - Normal Saline) 10 ml IVF Q12HR [facility] Last Admin: 10/25/19 09:19 Dose: 10 ml Sodium Chloride (Flush - Normal Saline) 10 ml IVF PRN PRN PRN Reason: Saline Flush Vitamin B Complex/Vit C/Folic Acid (Nephro-Onesimo Tablet) 1 tab PO DAILY [facility] Last Admin: 10/25/19 09:18 Dose: 1 tab Vital Signs & Weight: Vital Signs Temp Pulse Resp BP Pulse Ox 10/25/19 11:34 97.8 F 82 20 142/80 H 93 L 10/25/19 09:06 97.8 F 85 16 167/89 H 96 10/25/19 04:32 98.6 F 89 20 152/81 H 94 L Weight 205 lb 14.588 oz - Physical Exam General: alert & oriented x3 HEENT: mucus membranes moist Neck: supple neck Cardiac: regular rate and rhythm, S1/S2 Extremities: no edema - Labs Result Diagrams: 10/25/19 04:04 10/25/19 04:04 Troponin/CKMB CK-MB (CK-2) 4.0 ng/mL (0-6.6) 10/23/19 17:55 Troponin I 0.041 ng/mL (< 0.028) H 10/23/19 17:55 - Telemetry Sinus rhythms and dysrhythmias: sinus rhythm - Assessment/Plan Assessment/Plan: 1. Chest pain in adult - most likely musculoskeletal etiology; Stress test negative; cont. to monitor on tele 2. ESRD with PD q HS - 3. Chronic Systolic HF with EF 40-45% - On PD; On Coreg, which may increase to 6.25mg BID; not on EMMA/ARB due to CKD; Instructed fluid restriction 1800ml/day 4. HTN - stable 5. Type 1 DM - 6. HLD - on Statin MAR reviewed * Echo on 10/24/2019 with EF 40-45%, mild LVH, mild-mod LAE, mild MR and TR Pt. seen and eval. by me.I agree with the A/P by the PATIENT REPRESENTATIVE. He had no cardiac complaints today. He did state that he was fatigued.. Chest clear. RRR. If he has further episodes of chest painhe may eventually need a cardiac cath but at this time there is no indication to do so.kashif I will sign off. He can f/u in the office in 2-4 weeks..kashif
[2019-10-25 16:32] VITALS: BP 99/56; TEMP 97.7
[2019-10-25] MEDS ORDERED: NPH, Human Insulin Isophane 300 UNIT/3 ML VIAL SC SCH (21:00)
--- NOTE | 2019-10-26 01:22 | DIS ---
DATE OF ADMISSION: 10/23/2019 DATE OF DISCHARGE: 10/25/2019 DISCHARGE DIAGNOSES: 1. Chest pain, possibly secondary to uncontrolled hypertension versus mild pulmonary edema. 2. End-stage renal disease. 3. Leukocytosis. 4. Anemia. 5. Hyperphosphatemia. CONSULTATIONS: 1. Nephrology with Dr. Trinidad Matamoros. 2. Dr. Sowmya Lei of Cardiology. PROCEDURES: Nuclear stress test on 10/23. BRIEF HISTORY OF PRESENT ILLNESS: This is a 44-year-old male with a past medical history of ESRD, on peritoneal dialysis. He presented to the emergency room with chest pain that started at 2 a.m. that woke him up from his sleep. He reported that it was worse with taking a deep breath. He did report some radiation to his shoulders. He also reported that his blood pressure was over 200 systolic over the past few days. He stated that he has been not having complete removal of his dialysate fluid recently and has not been compliant with fluid restriction. When he presented to the emergency room, his blood pressure was 180/100. EKG showed sinus tachycardia. Chest x-ray was normal. Troponin was mildly elevated. He was admitted for further workup. HOSPITAL COURSE: Chest pain: The patient did have troponins, which were slightly elevated at 0.045. He had an ECHO done on 10/23, which showed an EF of 40% to 45%. He underwent a nuclear stress test, which was normal. Cardiology was consulted and did not have any further recommendations regarding his chest pain. Given that his blood pressure was elevated, he was started on Imdur. His chest pain improved the following day. He did also have a chest CT done, which ruled out any evidence of pneumonia. The patient should follow up with his PCP in a week. Hypertensive urgency: The patient presented with blood pressures over 200 systolic. He was started on Imdur in addition to his home nifedipine. His dialysis fluid was adjusted. His blood pressures improved to 142 systolic and did decrease to 99 systolic. He was discharged with Imdur and continued on his home nifedipine. He could consider initiation of low-dose beta sheyla Coreg if the patient tolerates that as an outpatient. He will follow up with Dr. Matamoros and his PCP. ESRD: The patient underwent peritoneal dialysis while in the hospital for two sessions. His creatinine remained stable at 21. His potassium was normal. His phosphorus, however, was elevated at 10. I did give him a prescription for sevelamer 800 mg p.o. t.i.d., which the patient states that he will be able to afford since it costs 30 dollars for 80 pills. He will also continue taking Tums three times daily. Anemia: The patient's hemoglobin was 9.8. He should consider iron studies as an outpatient. DISCHARGE PHYSICAL EXAMINATION: VITAL SIGNS: Temperature 97.7, heart rate 88, respiratory rate 17, O2 saturation 93 % on room air, and blood pressure 99/56. GENERAL: The patient is alert, awake, and oriented x3. CVS: Regular rate and rhythm with no murmurs, rubs, or gallops. LUNGS: Clear to auscultation bilaterally. ABDOMEN: Positive bowel sounds. Soft, nontender, nondistended. EXTREMITIES: No edema. PERTINENT LABORATORY DATA: CBC 10/24: White count 9.8, hemoglobin 9.8, hematocrit 30.6, platelet count 324. BMP 10/23: Significant for BUN of 80 and creatinine of 21.31. Potassium 4.2. Troponin I: 0.043, 0.045, 0.041. LFTs 10/22: Normal. CK-MB: 7.5, which improved to 4.0. Hepatitis serology 10/22: Negative. IMAGING: Chest x-ray 10/22: No evidence of acute disease. Nuclear stress test 10/23: No evidence of ischemia. EF 46%. Chest CT 10/23: Nonspecific bibasilar atelectasis. Echo 10/23: EF 40% to 45%. Mild MR. Mild TR. DISCHARGE INSTRUCTIONS: The patient to follow up with his PCP in a week. He should follow up with Dr. Matamoros in a week. He should take sevelamer with each meal and Tums to lower his phosphate. Consider repeat phosphate level in a week. Consider adding Coreg as an outpatient. He should follow with 2 L fluid restriction. Job ID: [id number] [facility]
== END 2019-10-25 17:25 | disposition home or self-care (01) ==
LOC: ERS 03:47 → ERHOLD 05:48 → 2NO 15:57
PROVIDERS: ADMIT Family Medicine; ATTEND Family Medicine
DX: R07.89 Other chest pain (principal); I16.0 Hypertensive urgency; I13.0 Hypertensive heart and chronic kidney disease with heart failure and stage 1 through stage 4 chronic kidney disease, or unspecified chronic kidney disease; E10.22 Type 1 diabetes mellitus with diabetic chronic kidney disease; E10.10 Type 1 diabetes mellitus with ketoacidosis without coma; I50.22 Chronic systolic (congestive) heart failure; N18.6 End stage renal disease; D63.1 Anemia in chronic kidney disease; E78.5 Hyperlipidemia, unspecified; F31.9 Bipolar disorder, unspecified; F41.9 Anxiety disorder, unspecified; Z79.4 Long term (current) use of insulin; Z79.899 Other long term (current) drug therapy; Z87.891 Personal history of nicotine dependence; Z99.2 Dependence on renal dialysis; Z88.8 Allergy status to other drugs, medicaments and biological substances; Z91.013 Allergy to seafood
CPT/HCPCS: 36415; 36416; 71045; 71250; 78452; 80048; 80053; 82553; 83690; 83735; 83880; 84100; 84484; 85025; 85027; 87340; 90945; 93005; 93010; 93017; 93306; 96372; 96374; 96375; 96376; A9500; G0257; G0378; J1644; J1815; J1940; J2270; J2405; J2785

== ENCOUNTER 2020-01-03 14:49 | Observation (INO) | payer OTHER ==
[2020-01-03] MEDS ORDERED: Dextrose 50% Abboject 50 ML SYRINGE ONE ×2 (15:06→16:07)
--- NOTE | 2020-01-03 15:10 | RAD ---
XR Chest 1 View Portable History: Dyspnea Comparison: Radiograph December 11, 2019 Findings: Heart size mildly enlarged. Mild pulmonary venous congestion. No pneumothorax. No large vol ume effusion. No acute osseous abnormality. Impression: Mild decompensated congestive heart failure.
[2020-01-03 15:32] LABS: #Basophils 0.1 thou/uL (0.0-0.2); #Eosinphils 0.7 thou/uL (0.0-0.7); #Lymphocytes 2.4 thou/uL (1.20-3.40); #Monocytes 0.7 thou/uL (0.11-0.59); #Neutrophils 9.6 thou/uL (1.40-6.50); %Basophils 0.8 % (0.0-1.0); %Lymphocytes 17.6 % (21.0-51.0); %Neutrophils 71.6 % (42.0-75.0); Hemoglobin 10.4 g/dL (14.0-18.0); Mean Corpuscular Hemoglobin 32.9 pg (27.0-31.0); Mean Corpuscular Volume 96.5 fL (78.0-98.0); Mean Platelet Volume 7.6 fL (7.4-10.4); Platelet Count 324 thou/uL (130-400); Red Blood Cell (RBC) Count 3.15 mill/uL (4.70-6.10); White Blood Cell (WBC) Count 13.4 thou/uL (4.8-10.8)
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
[2020-01-03 15:40] LABS: Acetaminophen Less than 6.0 mcg/mL (10.0-30.0); Alcohol Less than 10 mg/dL (Less than 10); CK (CPK) 223 U/L (30-200); Salicylate Less than 8.0 mg/dL (15.0-30.0)
[2020-01-03 15:46] LABS: ALT (SGPT) 11 U/L (8-55); AST (SGOT) 28 U/L (5-34); Albumin 4.2 g/dL (3.5-5.0); Alkaline Phosphatase 58 U/L (40-110); Anion Gap 25 mmol/L (10-20); BUN (Urea Nitrogen) 83 mg/dL (8.9-20.6); Bilirubin, Total 0.6 mg/dL (0.2-1.2); Calc. Creatinine Clearance 0 mL/min (70-130); Carbon Dioxide 18 mmol/L (22-29); Chloride 97 mmol/L (98-107); Estimated GFR-MDRD 3; Globulin 2.7 g/dL (2.4-3.5); Lipase 8 U/L (8-78); Protein, Total 6.9 g/dL (6.0-8.3); Sodium 134 mmol/L (136-145)
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
[2020-01-03 15:51] LABS: Glucose 38 mg/dL (70-105)
[2020-01-03] MEDS ORDERED: Calcium Chloride 1 GM/10 ML Abboject SYRINGE ONE (16:07)
[2020-01-03] MEDS ORDERED: Insulin Regular 300 UNITS/3 ML VIAL ONE (16:31)
--- NOTE | 2020-01-03 17:01 | CT ---
CT Lumbar Spine WO Con History: Trauma Comparison: Abdomen pelvis CT August 2019 Findings: Aortic contour is nonaneurysmal. Moderate arterial medial sclerosis. Paraspinal musculature is symmetric. No hematoma. No acute fracture or malalignment of the lumbar spi ne. Intraosseous hemangioma L2. Visualized posterior ribs are intact. Spinous processes are intact. Transverse processes are intact. Disc bulges at L4/L5 and L5/S1 cause moderate neural foraminal narrowing and mild effacement of the v entral CSF space. Impression: No acute lumbar spine fracture.
[2020-01-03 18:11] LABS: HBSAg Index 0.26 S/CO (0-0.99); Hep B Surf Ag Non-Reactive S/CO (NonReactive)
[2020-01-03] MEDS ORDERED: Dextrose 5 %-0.45 % NaCl 1,000 ML IV SCH ×2 (20:15→23:14)
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
[2020-01-03] MEDS ORDERED: Dextrose 50% Abboject 50 ML SYRINGE SLOW IVP PRN (20:49)
[2020-01-03] MEDS ORDERED: Ondansetron PF 4 MG/2 ML Vial IVP PRN (20:49)
[2020-01-03] MEDS ORDERED: HumaLOG 300 UNITS/3 ML VIAL SC PRN (20:49)
[2020-01-03] MEDS ORDERED: Dextrose 5% in Water 1,000 ML IV PRN (20:49)
[2020-01-03] MEDS: Heparin 5,000 UNITS/ML VIAL SC SCH (23:56)
[2020-01-04] MEDS: Fentanyl 100 MCG/2 ML VIAL SLOW IVP PRN ×3 (01:02→15:28)
[2020-01-04] MEDS ORDERED: FLU VACC QS2020-21(6MOS UP)/PF 60 MCG/0.5 ML SYRINGE IM ONE (02:15)
[2020-01-04 04:57] LABS: #Basophils 0.1 thou/uL (0.0-0.2); #Eosinphils 0.4 thou/uL (0.0-0.7); #Lymphocytes 1.7 thou/uL (1.20-3.40); #Monocytes 0.6 thou/uL (0.11-0.59); #Neutrophils 4.8 thou/uL (1.40-6.50); %Basophils 0.8 % (0.0-1.0); %Eosinophils 5.6 % (0.0-10.0); %Lymphocytes 22.9 % (21.0-51.0); %Monocytes 7.6 % (0.0-10.0); %Neutrophils 63.1 % (42.0-75.0); Hemoglobin 9.9 g/dL (14.0-18.0); Mean Corpuscular HGB CONC 33.8 g/dL (32.0-36.0); Mean Corpuscular Hemoglobin 32.8 pg (27.0-31.0); Mean Platelet Volume 7.9 fL (7.4-10.4); Platelet Count 263 thou/uL (130-400); RBC Distribution Width 15.7 % (11.5-14.5); Red Blood Cell (RBC) Count 3.01 mill/uL (4.70-6.10); White Blood Cell (WBC) Count 7.5 thou/uL (4.8-10.8)
[2020-01-04 05:23] LABS: Anion Gap 17 mmol/L (10-20); BUN (Urea Nitrogen) 39 mg/dL (8.9-20.6); Calc. Creatinine Clearance 13 mL/min (70-130); Calcium 8.2 mg/dL (7.8-10.44); Carbon Dioxide 28 mmol/L (22-29); Chloride 96 mmol/L (98-107); Estimated GFR-MDRD 6; Glucose 355 mg/dL (70-105); Potassium 4.7 mmol/L (3.5-5.1); Sodium 136 mmol/L (136-145)
[2020-01-04] MEDS: Heparin 5,000 UNITS/ML VIAL SC SCH ×3 (08:00→21:20)
[2020-01-04 12:00] LABS: SARS-CoV-2 MS2 Positive; SARS-CoV-2 N Gene Negative; SARS-CoV-2 S Gene Negative; SARS-CoV-2 by NAA Not Detected (NotDetected); SARS-CoV-2 orf1ab Negative
[2020-01-04] MEDS ORDERED: Cyclobenzaprine 10 MG TAB PO PRN (14:50)
[2020-01-04] MEDS ORDERED: Labetalol HCl 100 MG/20 ML VIAL SLOW IVP PRN (14:53)
[2020-01-04] MEDS ORDERED: NIFEdipine XL 60 MG TAB PO SCH (15:30)
[2020-01-04] MEDS: Amlodipine 10 MG TAB PO SCH (15:31)
[2020-01-04] MEDS ORDERED: Ferric Citrate [Auryxia] 210 MG Tablet PO SCH (15:45)
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
[2020-01-04] MEDS: Sevelamer Carbonate 800 MG TAB PO SCH (19:10)
[2020-01-04] MEDS: HYDROcodone/Acetaminophen 5/325 mg Tablet PO PRN (19:39)
[2020-01-04] MEDS ORDERED: Gabapentin 300 MG CAP PO SCH (21:00)
[2020-01-04] MEDS: Carvedilol 6.25 MG TAB PO SCH (21:19)
[2020-01-04] MEDS: Calcium Carbonate 500 MG ChewTAB PO SCH (21:19)
[2020-01-05 04:48] LABS: #Basophils 0.1 thou/uL (0.0-0.2); #Eosinphils 0.5 thou/uL (0.0-0.7); #Monocytes 0.6 thou/uL (0.11-0.59); #Neutrophils 4.2 thou/uL (1.40-6.50); %Basophils 1.1 % (0.0-1.0); %Eosinophils 7.1 % (0.0-10.0); %Lymphocytes 26.6 % (21.0-51.0); %Monocytes 7.8 % (0.0-10.0); %Neutrophils 57.3 % (42.0-75.0); Hemoglobin 8.8 g/dL (14.0-18.0); Mean Corpuscular HGB CONC 33.6 g/dL (32.0-36.0); Mean Corpuscular Hemoglobin 32.8 pg (27.0-31.0); Mean Corpuscular Volume 97.5 fL (78.0-98.0); Mean Platelet Volume 7.4 fL (7.4-10.4); Platelet Count 217 thou/uL (130-400); RBC Distribution Width 15.7 % (11.5-14.5); Red Blood Cell (RBC) Count 2.69 mill/uL (4.70-6.10); White Blood Cell (WBC) Count 7.4 thou/uL (4.8-10.8)
[2020-01-05 04:49] LABS: Hemoglobin A1c 5.8 % (4.0-6.0)
[2020-01-05 05:06] LABS: Anion Gap 14 mmol/L (10-20); BUN (Urea Nitrogen) 36 mg/dL (8.9-20.6); Calc. Creatinine Clearance 14 mL/min (70-130); Calcium 7.5 mg/dL (7.8-10.44); Carbon Dioxide 25 mmol/L (22-29); Chloride 100 mmol/L (98-107); Estimated GFR-MDRD 6; Glucose 191 mg/dL (70-105); Potassium 4.1 mmol/L (3.5-5.1); Sodium 135 mmol/L (136-145)
[2020-01-05 06:19] VITALS: BMI 33.0
[2020-01-05 07:29] VITALS: TEMP 98.7
[2020-01-05] MEDS: HYDROcodone/Acetaminophen 5/325 mg Tablet PO PRN (08:14)
[2020-01-05] MEDS: Sevelamer Carbonate 800 MG TAB PO SCH (08:16)
[2020-01-05] MEDS: Heparin 5,000 UNITS/ML VIAL SC SCH (08:16)
[2020-01-05] MEDS: Carvedilol 6.25 MG TAB PO SCH (08:16)
[2020-01-05] MEDS: Amlodipine 10 MG TAB PO SCH (08:18)
[2020-01-05] MEDS: Calcium Carbonate 500 MG ChewTAB PO SCH (08:25)
[2020-01-05] MEDS ORDERED: NIFEdipine XL 90 MG TAB PO SCH (09:00)
[2020-01-05] MEDS ORDERED: NIFEdipine XL 60 MG TAB PO SCH (09:00)
[2020-01-05] MEDS ORDERED: Folic Acid/Vit B Comp W-C PO SCH (09:00)
[2020-01-05] MEDS ORDERED: Calcitriol 0.25 MCG CAP PO SCH (09:00)
[2020-01-05 11:13] VITALS: BP 133/69
--- NOTE | 2020-01-05 12:31 | PRG ---
DATE OF SERVICE: 01/05/2020 SUBJECTIVE: Patient was seen and examined at bedside and overnight events noted. Patient denies any shortness of breath or chest pain or palpitation. No history of nausea or vomiting or diarrhea or fever or chills or cramps. OBJECTIVE: General: This is a well-built male, in apparent distress. Vital Signs: Temperature 96.7. Heart Rate 79. Respiratory rate 16. Blood pressure 133/69. HEENT: Atraumatic, normocephalic. Oral mucosa is moist. Neck: Supple. Cardiovascular: S1, S2 heard. Rate and rhythm regular. Respiratory: Clear to auscultation. Gastrointestinal: Abdomen is soft. Musculoskeletal: No tenderness. No edema. Dermatologic: No skin rash. Neurologic: Alert and awake and oriented x3. No focal neurologic deficits. Moving all the extremities. Psychiatric: Mood and affect normal. LABORATORY DATA: Potassium 4.1, BUN is 36, and creatinine is 9.1. ASSESSMENT AND PLAN: 1. End-stage renal disease. Continue dialysis as tolerated. 2. Edema, controlled. 3. Hypertension. 4. Anemia of chronic disease. Had dialysis yesterday. We will continue dialysis on Wednesday, , and Wednesday. Okay to discharge home. Job ID: [id number]
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
== END 2020-01-05 11:38 | disposition home or self-care (01) ==
LOC: ERS 14:49 → 2SW 20:04
PROVIDERS: ADMIT Student in an Organized Health Care Education/Training Program; ATTEND Student in an Organized Health Care Education/Training Program
DX: E10.649 Type 1 diabetes mellitus with hypoglycemia without coma (principal); I12.0 Hypertensive chronic kidney disease with stage 5 chronic kidney disease or end stage renal disease; E10.22 Type 1 diabetes mellitus with diabetic chronic kidney disease; N18.6 End stage renal disease; D63.1 Anemia in chronic kidney disease; E10.10 Type 1 diabetes mellitus with ketoacidosis without coma; E87.5 Hyperkalemia; F31.9 Bipolar disorder, unspecified; F17.200 Nicotine dependence, unspecified, uncomplicated; S00.03XA Contusion of scalp, initial encounter; E78.5 Hyperlipidemia, unspecified; M48.061 Spinal stenosis, lumbar region without neurogenic claudication; M48.07 Spinal stenosis, lumbosacral region; F41.9 Anxiety disorder, unspecified; Z79.899 Other long term (current) drug therapy; Z91.041 Radiographic dye allergy status; Z91.013 Allergy to seafood; Z96.41 Presence of insulin pump (external) (internal); Z99.2 Dependence on renal dialysis; Z20.828 Contact with and (suspected) exposure to other viral communicable diseases; V49.40XA Driver injured in collision with unspecified motor vehicles in traffic accident, initial encounter
CPT/HCPCS: 36415; 36416; 70450; 71045; 72125; 72131; 80048; 80053; 80307; 82140; 82550; 83036; 83690; 84484; 85025; 87340; 87635; 90471; 90662; 90935; 93005; G0008; G0257; J1644; J1815; J3010; U0003

== ENCOUNTER 2020-03-17 15:44 | Emergency (ER) | payer OTHER ==
--- NOTE | 2020-03-17 16:29 | RAD ---
Chest one view HISTORY: Dyspnea. COMPARISON: 01/03/2020. FINDINGS: Cardiac silhouette is magnified and upper limits of normal. Mediastinum is midline. Pulmonary vasculature slightly engorged, less than on the previous exam. No lobar consolidation or evidence of pneumothorax. IMPRESSION : Pulmonary vascular congestion.
[2020-03-17 16:37] LABS: #Basophils 0.1 thou/uL (0.0-0.2); #Eosinphils 0.6 thou/uL (0.0-0.7); #Monocytes 0.7 thou/uL (0.11-0.59); %Basophils 0.6 % (0.0-1.0); %Eosinophils 5.7 % (0.0-10.0); %Lymphocytes 29.2 % (21.0-51.0); %Monocytes 6.3 % (0.0-10.0); %Neutrophils 58.2 % (42.0-75.0); Hemoglobin 12.7 g/dL (14.0-18.0); Mean Corpuscular HGB CONC 34.2 g/dL (32.0-36.0); Mean Corpuscular Hemoglobin 33.1 pg (27.0-31.0); Mean Platelet Volume 7.4 fL (7.4-10.4); Platelet Count 281 thou/uL (130-400); Red Blood Cell (RBC) Count 3.84 mill/uL (4.70-6.10); White Blood Cell (WBC) Count 10.3 thou/uL (4.8-10.8)
[2020-03-17 17:10] LABS: ALT (SGPT) 23 U/L (8-55); AST (SGOT) 27 U/L (5-34); Albumin 4.2 g/dL (3.5-5.0); Alkaline Phosphatase 59 U/L (40-110); Anion Gap 29 mmol/L (10-20); BUN (Urea Nitrogen) 102 mg/dL (8.9-20.6); Bilirubin, Total 0.7 mg/dL (0.2-1.2); Calc. Creatinine Clearance 0 mL/min (70-130); Calcium 8.3 mg/dL (7.8-10.44); Carbon Dioxide 22 mmol/L (22-29); Chloride 95 mmol/L (98-107); Globulin 3.2 g/dL (2.4-3.5); Glucose 102 mg/dL (70-105); Protein, Total 7.4 g/dL (6.0-8.3); Sodium 138 mmol/L (136-145)
[2020-03-17 17:16] LABS: Potassium 7.8 mmol/L (3.5-5.1)
[2020-03-17 18:41] LABS: HBSAg Index 0.24 S/CO (0-0.99); Hep B Surf Ag Non-Reactive S/CO (NonReactive)
--- NOTE | 2020-03-17 19:49 | CON ---
DATE OF CONSULTATION: 03/17/2020 CONSULTING PHYSICIAN: Chucho Watts MD REASON FOR CONSULTATION: End-stage renal disease evaluation and care. REASON FOR ADMISSION: Weakness. HISTORY OF PRESENT ILLNESS: A 44-year-old male with history of end-stage renal disease, on hemodialysis and type 1 diabetes, came to the hospital with weakness and shortness of breath. The patient said that he was noncompliant with his diet and fluid restriction and started having shortness of breath and weakness, and he was worried about hyperkalemia, came to the ER for evaluation and potassium was found to be 7.8 and fluid overload with hypoxia. Nephrology consulted for maintenance hemodialysis. ER is planning to discharge him after dialysis if he is feeling stable. The patient was seen at the dialysis room and getting started on dialysis. No fever or chills. No nausea or vomiting. PAST MEDICAL HISTORY: Positive for end-stage renal disease, hypertension, bipolar disorder, and hyperlipidemia. PAST SURGICAL HISTORY: Tonsillectomy and dialysis access placement. HOME MEDICATIONS: Reviewed. ALLERGIES: SHELLFISH AND IODINE. SOCIAL HISTORY: Still smoking. Alcohol use, presents. REVIEW OF SYSTEMS: CONSTITUTIONAL: Negative for weight loss or gain, ability to conduct usual activities. SKIN: Negative for rash, itching. EYES: Negative for double vision, pain. ENT/MOUTH: Negative for nose bleeding, neck stiffness, pain, tenderness. CARDIOVASCULAR: Negative for palpitations, dyspnea on exertion, orthopnea. RESPIRATORY: Negative for shortness of breath, wheezing, cough, hemoptysis, fever or night sweats. GASTROINTESTINAL: Negative for poor appetite, abdominal pain, heartburn, nausea, vomiting, constipation, or diarrhea. GENITOURINARY: Negative for urgency, frequency, dysuria, nocturia. MUSCULOSKELETAL: Negative for pain, swelling. NEUROLOGIC/PSYCHIATRIC: Negative for anxiety, depression. ALLERGY/IMMUNOLOGIC: Negative for skin rash, bleeding tendency. FAMILY HISTORY: Positive for diabetes. PHYSICAL EXAMINATION: GENERAL: Well-built male, in [id number] distress. VITAL SIGNS: Reviewed. HEENT: Atraumatic and normocephalic. NECK: Supple. CVS: S1 and S2 heard. RESPIRATORY: Coarse breath sounds. GI: Abdomen is soft. MUSCULOSKELETAL: 1+ edema. DERMATOLOGIC: No skin rash. NEUROLOGIC: Alert and awake. PSYCHIATRIC: Depressed. LABORATORY DATA: Hemoglobin 12.7. Potassium 7.8, BUN 102, and creatinine is 13.6. ASSESSMENT AND PLAN: 1. End-stage renal disease. Plan is to have dialysis as tolerated. The patient was having emergent dialysis. 2. Anemia. Since severe life-threatening hyperkalemia plan to have emergent dialysis with mild acidosis. 3. Azotemia. 4. Elevated BNP. 5. Acute hypoxic respiratory failure. 6. Fluid overload. Plan is to have dialysis with fluid removal and we will use 1K bath for an hour, then 2K. The patient will be monitored with a telemetry monitoring and monitor after dialysis. We will follow. Thank you for the consult. Job ID: [id number]
[2020-03-17] MEDS ORDERED: Dextrose 50% Abboject 50 ML SYRINGE ONE (22:38)
[2020-03-17 22:57] LABS: #Basophils 0.1 thou/uL (0.0-0.2); #Eosinphils 0.5 thou/uL (0.0-0.7); #Lymphocytes 2.6 thou/uL (1.20-3.40); #Monocytes 0.6 thou/uL (0.11-0.59); #Neutrophils 5.5 thou/uL (1.40-6.50); %Eosinophils 5.2 % (0.0-10.0); %Monocytes 6.4 % (0.0-10.0); %Neutrophils 59.3 % (42.0-75.0); Hemoglobin 13.4 g/dL (14.0-18.0); Mean Corpuscular HGB CONC 33.9 g/dL (32.0-36.0); Mean Corpuscular Hemoglobin 32.8 pg (27.0-31.0); Mean Corpuscular Volume 96.7 fL (78.0-98.0); Platelet Count 270 thou/uL (130-400); White Blood Cell (WBC) Count 9.2 thou/uL (4.8-10.8)
[2020-03-17 23:19] LABS: ALT (SGPT) 23 U/L (8-55); AST (SGOT) 28 U/L (5-34); Albumin 4.4 g/dL (3.5-5.0); Alkaline Phosphatase 59 U/L (40-110); Anion Gap 20 mmol/L (10-20); BUN (Urea Nitrogen) 54 mg/dL (8.9-20.6); Bilirubin, Total 0.7 mg/dL (0.2-1.2); Calc. Creatinine Clearance 0 mL/min (70-130); Calcium 8.6 mg/dL (7.8-10.44); Carbon Dioxide 27 mmol/L (22-29); Chloride 96 mmol/L (98-107); Globulin 3.5 g/dL (2.4-3.5); Glucose 151 mg/dL (70-105); Protein, Total 7.9 g/dL (6.0-8.3); Sodium 139 mmol/L (136-145)
--- NOTE | 2020-03-17 23:28 | CT ---
CT head noncontrast HISTORY: Altered mental status. COMPARISON: 01/03/2020. FINDINGS: There is no evidence of acute intracranial hemorrhage or infarct. The ventricles appear nor mal in size, shape and position. There is no mass effect or shift of midline structures. Visualized paranasal sinuses remain well-aerated. IMPRESSION : No abnormalities are demonstrated.
--- NOTE | 2020-03-23 10:41 | EKG ---
Test Reason : Blood Pressure : / mmHG Vent. Rate : 081 BPM Atrial Rate : 081 BPM P-R Int : 154 ms QRS Dur : 110 ms QT Int : 396 ms P-R-T Axes : 032 040 -10 degrees QTc Int : 460 ms Normal sinus rhythm Possible Anterior infarct , age undetermined Abnormal ECG Confirmed by MISTY SAM, ZARI Vaughn ([id number]), editor newspaper [employer] ([id number]) on 03/23/2020 10:41:42 AM Referred By: Confirmed By:ZARI JAY MD
--- NOTE | 2020-03-23 10:49 | EKG ---
Test Reason : Blood Pressure : / mmHG Vent. Rate : 095 BPM Atrial Rate : 095 BPM P-R Int : 160 ms QRS Dur : 098 ms QT Int : 376 ms P-R-T Axes : 044 -10 081 degrees QTc Int : 472 ms Normal sinus rhythm Prolonged QT Abnormal ECG Confirmed by MISTY SAM, ZARI Vaughn ([id number]), editor at large [employer] ([id number]) on 03/23/2020 10:49:11 AM Referred By: Confirmed By:ZARI JAY MD
== END 2020-03-18 02:37 | disposition home or self-care (01) ==
LOC: ERS 15:44
DX: I12.0 Hypertensive chronic kidney disease with stage 5 chronic kidney disease or end stage renal disease (principal); N18.6 End stage renal disease; E10.22 Type 1 diabetes mellitus with diabetic chronic kidney disease; E87.70 Fluid overload, unspecified; E87.5 Hyperkalemia; E78.5 Hyperlipidemia, unspecified; Z99.2 Dependence on renal dialysis; Z79.899 Other long term (current) drug therapy
CPT/HCPCS: 36415; 36416; 70450; 71045; 80053; 83605; 83880; 85025; 87340; 90935; 93005; 94760; 96374; G0257

== ENCOUNTER 2020-03-29 12:21 | Emergency (ER) | payer OTHER ==
[2020-03-29] MEDS ORDERED: Ondansetron PF 4 MG/2 ML Vial ONE (13:03)
[2020-03-29 13:19] LABS: #Basophils 0.1 thou/uL (0.0-0.2); #Eosinphils 0.6 thou/uL (0.0-0.7); #Lymphocytes 3.5 thou/uL (1.20-3.40); #Monocytes 0.6 thou/uL (0.11-0.59); #Neutrophils 6.7 thou/uL (1.40-6.50); %Basophils 0.5 % (0.0-1.0); %Eosinophils 4.9 % (0.0-10.0); %Lymphocytes 30.8 % (21.0-51.0); %Monocytes 5.6 % (0.0-10.0); %Neutrophils 58.3 % (42.0-75.0); Hemoglobin 13.1 g/dL (14.0-18.0); Mean Corpuscular HGB CONC 34.3 g/dL (32.0-36.0); Mean Corpuscular Hemoglobin 33.2 pg (27.0-31.0); Mean Platelet Volume 8.2 fL (7.4-10.4); Platelet Count 259 thou/uL (130-400); RBC Distribution Width 12.8 % (11.5-14.5); Red Blood Cell (RBC) Count 3.94 mill/uL (4.70-6.10); White Blood Cell (WBC) Count 11.5 thou/uL (4.8-10.8)
--- NOTE | 2020-03-29 13:23 | RAD ---
Chest AP view INDICATION: History of fistula infiltration and incomplete dialysis COMPARISON: Prior exam dated March 17, 2020 FINDINGS: Lungs: There are low lung volumes. There is some crowding of the pulmonary vasculature within the in frahilar regions bilaterally likely related to subsegmental volume loss. Cardiac silhouette: There is mild cardiomegaly Pulmonary vasculature: Normal Pleural spaces: No pleural effusion or pneumothorax is demonstrated. Upper abdomen: No abnormality seen. Osseous structures: No acute osseous abnormality. Additional findings: None. IMPRESSION: Low lung volumes. No definite acute abnormality.
[2020-03-29 13:42] LABS: ALT (SGPT) 16 U/L (8-55); AST (SGOT) 20 U/L (5-34); Albumin 4.2 g/dL (3.5-5.0); Alkaline Phosphatase 64 U/L (40-110); Anion Gap 30 mmol/L (10-20); BUN (Urea Nitrogen) 110 mg/dL (8.9-20.6); Bilirubin, Total 0.6 mg/dL (0.2-1.2); Calc. Creatinine Clearance 0 mL/min (70-130); Carbon Dioxide 20 mmol/L (22-29); Chloride 92 mmol/L (98-107); Globulin 3.1 g/dL (2.4-3.5); Glucose 197 mg/dL (70-105); Protein, Total 7.3 g/dL (6.0-8.3); Sodium 134 mmol/L (136-145)
[2020-03-29 13:45] LABS: Potassium 8.2 mmol/L (3.5-5.1)
[2020-03-29] MEDS ORDERED: INSULIN REGULAR IN 0.9 % NACL 100 UNIT/100 ML BAG ONE (14:19)
[2020-03-29] MEDS ORDERED: Dextrose 50% Abboject 50 ML SYRINGE ONE (14:19)
[2020-03-29] MEDS ORDERED: Calcium Chloride 1 GM/10 ML Abboject SYRINGE ONE (14:19)
== END 2020-03-29 20:29 | disposition home or self-care (01) ==
LOC: ERS 12:21
DX: E87.5 Hyperkalemia (principal); E10.22 Type 1 diabetes mellitus with diabetic chronic kidney disease; I12.0 Hypertensive chronic kidney disease with stage 5 chronic kidney disease or end stage renal disease; N18.6 End stage renal disease; E78.5 Hyperlipidemia, unspecified; Z99.2 Dependence on renal dialysis; F41.9 Anxiety disorder, unspecified; F31.9 Bipolar disorder, unspecified; Z79.899 Other long term (current) drug therapy
CPT/HCPCS: 36415; 36416; 71045; 80053; 84484; 85025; 93005; 96374; 96375; J2405

== ENCOUNTER 2020-03-30 15:24 | Inpatient (IN) | payer OTHER ==
[2020-03-30 16:02] LABS: #Basophils 0.1 thou/uL (0.0-0.2); #Eosinphils 0.5 thou/uL (0.0-0.7); #Lymphocytes 2.7 thou/uL (1.20-3.40); #Monocytes 0.7 thou/uL (0.11-0.59); #Neutrophils 6.2 thou/uL (1.40-6.50); %Eosinophils 4.7 % (0.0-10.0); %Lymphocytes 26.4 % (21.0-51.0); %Monocytes 6.4 % (0.0-10.0); %Neutrophils 61.5 % (42.0-75.0); Hemoglobin 14.7 g/dL (14.0-18.0); Mean Corpuscular HGB CONC 33.6 g/dL (32.0-36.0); Mean Corpuscular Hemoglobin 32.5 pg (27.0-31.0); Mean Corpuscular Volume 96.9 fL (78.0-98.0); Mean Platelet Volume 7.9 fL (7.4-10.4); Platelet Count 313 thou/uL (130-400); RBC Distribution Width 12.8 % (11.5-14.5); Red Blood Cell (RBC) Count 4.53 mill/uL (4.70-6.10); White Blood Cell (WBC) Count 10.1 thou/uL (4.8-10.8)
[2020-03-30 16:39] LABS: ALT (SGPT) 18 U/L (8-55); AST (SGOT) 27 U/L (5-34); Albumin 5.2 g/dL (3.5-5.0); Alkaline Phosphatase 74 U/L (40-110); Anion Gap 33 mmol/L (10-20); BUN (Urea Nitrogen) 84 mg/dL (8.9-20.6); Bilirubin, Total 0.8 mg/dL (0.2-1.2); Calc. Creatinine Clearance 0 mL/min (70-130); Calcium 8.3 mg/dL (7.8-10.44); Carbon Dioxide 19 mmol/L (22-29); Chloride 95 mmol/L (98-107); Globulin 4.2 g/dL (2.4-3.5); Glucose 103 mg/dL (70-105); Potassium 7.5 mmol/L (3.5-5.1); Protein, Total 9.4 g/dL (6.0-8.3); Sodium 139 mmol/L (136-145)
[2020-03-30] MEDS ORDERED: Insulin Regular 300 UNITS/3 ML VIAL ONE (17:00)
[2020-03-30] MEDS ORDERED: Sodium Bicarb 50 MEQ/50 ML Abboject 8.4% SYRINGE ONE (17:00)
[2020-03-30] MEDS ORDERED: Dextrose 50% Abboject 50 ML SYRINGE ONE ×3 (17:00→18:22)
[2020-03-30] MEDS ORDERED: Calcium Gluc 4.6 MEQ/10 ML (100 MG/ML) ONE (17:00)
[2020-03-30 17:24] LABS: Magnesium 2.8 mg/dL (1.6-2.6)
--- NOTE | 2020-03-30 18:06 | CON ---
DATE OF CONSULTATION: REASON FOR CONSULTATION: Hyperkalemia. HISTORY OF PRESENT ILLNESS: This is a very pleasant 44-year-old gentleman, who presented to the hospital after feeling weakness, was noted to have a potassium of 7.5. He was dialyzed last night and this morning again. The patient denies headache, numbness, tingling, or weakness. Denies any nausea, vomiting, or chest pain. PAST MEDICAL HISTORY: Significant for hypertension, ESRD, hyperkalemia, tunneled dialysis catheter, AV fistula, tonsillectomy, diabetes mellitus runs in the family, bipolar disorder, type 1 diabetes mellitus. SOCIOECONOMIC HISTORY: No alcohol or drug abuse. FAMILY HISTORY: Negative for ESRD. ALLERGIES: REVIEWED. HOME MEDICATIONS: List reviewed. HOSPITAL MEDICATIONS: List reviewed. REVIEW OF SYSTEMS: 15-point review of systems was performed, negative except for positives noted above: HEENT: Eyes intact, no diplopia. Ears: No hearing loss or earache. Nose: No discharge or bleeding. CHEST: No cough or phlegm. ABDOMEN: No nausea or vomiting. GENITOURINARY: No hematuria. No Chan catheter. MUSCULOSKELETAL: No low back pain. No joint swelling or pain. NEUROLOGICAL: No syncope. No seizures. SKIN: No complaints of rash or itching. PSYCHIATRIC: No depression. CONSTITUTIONAL: No weight loss or loss of appetite. PHYSICAL EXAMINATION: GENERAL: The patient is awake and alert. VITAL SIGNS: Afebrile, pulse 75, breathing at 16, blood pressure 130/70. HEENT: Head normocephalic and atraumatic. Eyes intact, no ulcers. Nose intact, no ulcers. Ears intact, no ulcers. NECK: Supple. No JVD. CHEST: Symmetrical and clear. CARDIOVASCULAR: Shows S1 and S2, no rub, no murmur. GASTROINTESTINAL: Abdomen is soft, bowel sounds positive. EXTREMITIES: Show no edema or ulcers. SKIN: Shows no rash or petechiae. MUSCULOSKELETAL: Shows no joint swelling or stiffness. GENITOURINARY: Shows no Chan or CVA tenderness. NEUROLOGIC: Motor intact. Cranial nerves intact. LABORATORY DATA: Reviewed. ASSESSMENT AND PLAN: 1. Stage 6 chronic kidney disease, significant hyperkalemia, plan dialysis. 2. Hyperkalemia, plan dialysis. 3. Anemia, stable. 4. Medication based on GFR appropriate. 5. Diet was encouraged. Job ID: [id number]
[2020-03-30] MEDS ORDERED: Acetaminophen 325 MG TAB PO PRN (18:12)
[2020-03-30] MEDS ORDERED: Ondansetron PF 4 MG/2 ML Vial IVP PRN (18:12)
[2020-03-30] MEDS ORDERED: Ondansetron ODT 4 MG TAB PO PRN (18:12)
[2020-03-30] MEDS ORDERED: Dextrose 50% Abboject 50 ML SYRINGE SLOW IVP PRN (18:17)
[2020-03-30] MEDS ORDERED: Dextrose 5% in Water 1,000 ML IV PRN (18:17)
[2020-03-30 18:42] LABS: Anion Gap 29 mmol/L (10-20); BUN (Urea Nitrogen) 85 mg/dL (8.9-20.6); Calc. Creatinine Clearance 0 mL/min (70-130); Calcium 8.2 mg/dL (7.8-10.44); Carbon Dioxide 25 mmol/L (22-29); Chloride 94 mmol/L (98-107); Glucose 156 mg/dL (70-105); Sodium 141 mmol/L (136-145)
[2020-03-30 18:52] LABS: Potassium 7.1 mmol/L (3.5-5.1)
--- NOTE | 2020-03-30 18:59 | HP ---
PRIMARY CARE PROVIDER: MAKENNA Rubi. CHIEF COMPLAINT: Weakness. HISTORY OF PRESENT ILLNESS: This is a 44-year-old male with history of end- stage renal disease, on hemodialysis, diabetes mellitus type 1 on an insulin pump, hypertension, bipolar disorder, who presents to the emergency room again today with the complaint of weakness and fatigue. The patient reports the onset of cramping in his legs, difficulty with standing, walking, generalized fatigue that started on 03/28 at 2300. He notes that these are the same symptoms as in the past when he has had elevated potassium and he estimates being hospitalized 5 times for this. He presented to the emergency room yesterday, was found to be hyperkalemic and underwent hemodialysis here. At the conclusion of dialysis, his symptoms were resolved and he was discharged to home. He reports waking up at 5:30 this morning, going for hemodialysis at his usual facility and 4 L of fluid were removed. He returned home around 11 a.m., feeling well. He then reports the onset of the same symptoms of pain, weakness, fatigue at 1500. He returns to the emergency room and was again found to be hyperkalemic with a potassium of 7.5. The patient denies any precipitating or relieving factors. He reports being compliant with his hemodialysis. He normally goes on Wednesday, Wednesday, and Wednesday. This week due to the holiday, he went on Wednesday and Wednesday. He attempted dialysis on , which is 2 days ago. However, there was difficulty with his fistula and he did not receive a normal dialysis session. The patient reports with the insulin pump, his blood sugars remain in about the 140s. He does say that his hemoglobin A1c is less than 7. In the emergency room because of the potassium of 7.5 with some EKG changes, the patient received one amp of sodium bicarbonate, two amps of D50, 10 units of regular insulin IV, calcium gluconate 1000 mg and hospitalist called for admission, Nephrology called with an emergent consult. ALLERGIES: SHELLFISH AND IODINE. CURRENT MEDICATIONS: Reconciled with the list on the chart. The patient reports that he is also on another medicine he does not know the name of, and has some medicines that he has been unable to afford due to changes in insurance. 1. Tums 2000 mg t.i.d. with meals and at bedtime. 2. Nifedipine 90 mg b.i.d. 3. Seroquel 200 mg of the regular at bedtime. 4. Seroquel extended release 150 mg at bedtime. 5. Zoloft 25 mg daily. 6. Carvedilol 12.5 mg b.i.d. 7. Dialyvite one tablet daily. 8. Insulin pump. 9. Medication to lower potassium, he does not know the name of it. PAST MEDICAL HISTORY: 1. Type 1 diabetes on an insulin pump. 2. Hypertension. 3. End-stage renal disease, on hemodialysis. 4. Peripheral neuropathy. PAST SURGICAL HISTORY: 1. Adenoid and tonsils. 2. Right upper extremity fistula. 3. Peritoneal dialysis catheter placement and removal. 4. Bilateral eyes for hemorrhage. SOCIAL HISTORY: The patient denies any alcohol or tobacco, he uses marijuana monthly or less, his mom is the surrogate decision maker and her name is Shirley Powell, and he is a full code. REVIEW OF SYSTEMS: Negative for any recent illness, any change in routine, any new vision changes. All remaining review of systems are reviewed and negative. PHYSICAL EXAMINATION: VITAL SIGNS: Blood pressure 125/84, pulse 80, respirations 20, temperature 98.5, saturation 96% on room air. Pain rated as a 7/10. GENERAL: Awake, alert, responsive, not in apparent distress. Able to speak in full sentences. HEENT: Pupils are equal and round. Oral mucosa is pink and moist. NECK: Supple, nontender. LYMPHATICS: No palpable cervical or supraclavicular lymphadenopathy. LUNGS: Clear to auscultation bilateral. No audible wheezing, rhonchi, or rales. HEART: Normal S1, S2. Regular rate and rhythm. No significant murmur. ABDOMEN: Soft with present bowel sounds. Nontender, nondistended. EXTREMITIES: No pitting edema, clubbing or cyanosis. SKIN: No visible rashes. NEURO: No focal deficits. PSYCH: Appears euthymic. LABORATORY DATA: Reviewed. CBC; 10.1, 14.7, 43.9, 313. Chemistry; 139, 7.5, 95, 19, 84, 15.3 with a glucose of 103. Magnesium 2.8. T bilirubin 0.8, AST 27, ALT 18, alkaline phosphatase 74, total protein 9.4, albumin 5.2. EKG is personally reviewed, sinus rhythm, normal axis, normal intervals, some peaked T-waves. No ST changes. IMPRESSION: 1. End-stage renal disease with hyperkalemia despite hemodialysis yesterday in the emergency room and again today at an outpatient dialysis clinic. 2. Hypertension, controlled. 3. Type 1 diabetes mellitus, on insulin pump, appears controlled. 4. Bipolar disorder, appears controlled. PLAN: 1. Admission to the hospital with an anticipated length of stay greater than 2 midnights given the patient has remained hyperkalemic with 2 separate dialysis sessions over the past 36 hours. 2. Consultation with Nephrology has been completed with plan for emergent dialysis tonight. 3. Continuing his insulin pump, monitoring his blood sugars with hypoglycemia protocol. 4. Continuing the Seroquel. We only have the regular Seroquel available, we will request that the patient bring it or have somebody drop off his extended release Seroquel to keep him on schedule. 5. Given the low blood pressure, we will hold the nifedipine; of note, earlier today on arrival was 88/57, on my exam, it was 100 systolic, we will order the carvedilol at a lower dose with hold parameters as well. 6. Continuing the Zoloft and Tums. 7. DVT prophylaxis with heparin. 8. GI prophylaxis not indicated. 9. Code status is full. Surrogate decision maker is the patient's mom as noted above. 10. The patient is at high risk given age, comorbidities, and current presentation. 11. Reviewed the plan of care with the patient who demonstrates understanding and agrees. No questions or further needs at end of evaluation. Addendum - after dictation his nurse checked his blood sugar and it was 25. The patient received D50 and ate, repeat blood sugar was over 100. The patient turned off his insulin pump for now. Requested q1h blood sugars x 3 and close monitoring. Job ID: [id number] [facility]
[2020-03-30 22:08] LABS: SARS-CoV-2 NAA Rapid Test Not Detected (NotDetected)
[2020-03-30] MEDS: Calcium Carbonate 500 MG ChewTAB PO SCH (22:09)
[2020-03-30] MEDS: Heparin 5,000 UNITS/ML VIAL SC SCH (22:09)
[2020-03-30 22:18] VITALS: BMI 31.9
[2020-03-31 03:52] LABS: #Basophils 0.1 thou/uL (0.0-0.2); #Eosinphils 0.4 thou/uL (0.0-0.7); #Lymphocytes 3.6 thou/uL (1.20-3.40); #Monocytes 0.9 thou/uL (0.11-0.59); #Neutrophils 5.3 thou/uL (1.40-6.50); %Basophils 0.6 % (0.0-1.0); %Eosinophils 3.8 % (0.0-10.0); %Monocytes 8.6 % (0.0-10.0); Hemoglobin 14.1 g/dL (14.0-18.0); Mean Corpuscular HGB CONC 33.5 g/dL (32.0-36.0); Mean Corpuscular Hemoglobin 32.5 pg (27.0-31.0); Mean Platelet Volume 8.1 fL (7.4-10.4); Platelet Count 280 thou/uL (130-400); RBC Distribution Width 12.8 % (11.5-14.5); Red Blood Cell (RBC) Count 4.35 mill/uL (4.70-6.10); White Blood Cell (WBC) Count 10.2 thou/uL (4.8-10.8)
[2020-03-31 04:13] LABS: Anion Gap 25 mmol/L (10-20); BUN (Urea Nitrogen) 50 mg/dL (8.9-20.6); Calc. Creatinine Clearance 12 mL/min (70-130); Carbon Dioxide 24 mmol/L (22-29); Chloride 92 mmol/L (98-107); Glucose 197 mg/dL (70-105); Potassium 4.3 mmol/L (3.5-5.1); Sodium 137 mmol/L (136-145)
[2020-03-31] MEDS: Calcium Carbonate 500 MG ChewTAB PO SCH ×4 (08:36→20:38)
[2020-03-31] MEDS: Carvedilol 6.25 MG TAB PO SCH ×2 (08:37→16:23)
[2020-03-31] MEDS: Heparin 5,000 UNITS/ML VIAL SC SCH ×3 (08:37→20:52)
--- NOTE | 2020-03-31 09:17 | PDOC.HOSPP ---
- Subjective Encounter Date: 03/31/20 Encounter Time: 09:16 Subjective: Mr. Gibbs was seen today in follow-up of hyperkalemia and ESRD. He does not have any complaints this morning. - Objective Vital Signs & Weight: Vital Signs (12 hours) Temp BP 03/31/20 08:37 121/73 03/31/20 07:02 97.8 F 03/31/20 05:00 98.6 F 03/31/20 00:00 98.3 F Weight Weight 198 lb 14.4 oz Most Recent Monitor Data Heart Rate from ECG 86 NIBP 111/62 NIBP BP-Mean 78 Respiration from ECG 11 SpO2 97 Result Diagrams: 03/31/20 03:39 03/31/20 03:39 Additional Labs: Accuchecks 03/31/20 03/31/20 03/31/20 07:09 05:42 02:08 POC Glucose 220 H 204 H 229 H 03/31/20 03/30/20 03/30/20 00:10 23:08 22:12 POC Glucose 201 H 222 H 219 H 03/30/20 03/30/20 20:32 18:46 POC Glucose 203 H 115 H Hospitalist ROS - Medication Medications: Active Medications Generic Name Dose Route Start Last Admin Trade Name Freq PRN Reason Stop Dose Admin Calcium Carbonate 2,000 mg 03/31/20 08:00 03/31/20 08:36 Calcium Carbonate 500 Mg Chewtab PO 2,000 mg TID-WM DELILAH Administration Calcium Carbonate 2,000 mg 03/30/20 21:00 03/30/20 22:09 Calcium Carbonate 500 Mg Chewtab PO 2,000 mg HS DELILAH Administration Carvedilol 6.25 mg 03/31/20 08:00 03/31/20 08:37 Carvedilol 6.25 Mg Tab PO 6.25 mg BID-WM DELILAH Administration Heparin Sodium (Porcine) 5,000 units 03/30/20 21:00 03/31/20 08:37 Heparin 5,000 Units/Ml Vial SC 5,000 units TID DELILAH Administration Quetiapine Fumarate 200 mg 03/30/20 21:00 03/30/20 22:09 Quetiapine Fumarate 200 Mg Tab PO 200 mg HS DELILAH Administration - Exam Eye: PERRL, anicteric sclera ENT: normocephalic atraumatic Heart: RRR, no murmur, no gallops, no rubs, normal peripheral pulses Respiratory: CTAB, no wheezes, no rales, no ronchi, normal chest expansion, no tachypnea Gastrointestinal: soft, non-tender, non-distended, normal bowel sounds, no palpable masses Extremities: no cyanosis, no edema Hosp A/P (1) End-stage renal disease on hemodialysis Code(s): N18.6 - END STAGE RENAL DISEASE; Z99.2 - DEPENDENCE ON RENAL DIALYSIS Status: Acute (2) Hyperkalemia Code(s): E87.5 - HYPERKALEMIA Status: Acute (3) Type 1 diabetes mellitus Status: Chronic (4) HLD (hyperlipidemia) Code(s): E78.5 - HYPERLIPIDEMIA, UNSPECIFIED Status: Chronic (5) Hypertension Code(s): I10 - ESSENTIAL (PRIMARY) HYPERTENSION Status: Chronic - Plan * Hyperkalemia- in the setting of ESRD, unclear the reason for recurrent episodes- will re-check his potassium this evening and again in the morning * ESRD- continue dialysis as per nephrology * HTN- blood pressure is stable- continue Carvediolol. Will re-start Imdur. Continue to hold Procardia, as his blood pressure is on the lower side * DM - blood glucose is elevated ( however yesterday he had a hypoglycemic episode. Will start a SSI * Further recommendations as per Nephrology
[2020-03-31] MEDS ORDERED: Dextrose 50% Abboject 50 ML SYRINGE SLOW IVP PRN (09:23)
[2020-03-31] MEDS ORDERED: Dextrose 5% in Water 1,000 ML IV PRN (09:23)
[2020-03-31] MEDS ORDERED: HumaLOG 300 UNITS/3 ML VIAL SC PRN (09:23)
--- NOTE | 2020-03-31 11:07 | PRG ---
DATE OF SERVICE: 03/31/2020 SUBJECTIVE: A 44-year-old gentleman, being seen for end-stage renal disease. The patient denied any nausea, vomiting, or chest pain. PHYSICAL EXAMINATION: GENERAL: The patient is awake and alert. VITAL SIGNS: Afebrile, pulse 94, breathing at 16, blood pressure 122/79. HEENT: Head normocephalic and atraumatic. Eyes intact, no ulcers. Nose intact, no ulcers. Ears intact, no ulcers. NECK: Supple. No JVD. CHEST: Symmetrical and clear. CARDIOVASCULAR: Shows S1 and S2, no rub, no murmur. GASTROINTESTINAL: Abdomen is soft, bowel sounds positive. EXTREMITIES: Show no edema or ulcers. SKIN: Shows no rash or petechiae. MUSCULOSKELETAL: Shows no joint swelling or stiffness. GENITOURINARY: Shows no Chan or CVA tenderness. NEUROLOGIC: Motor intact. Cranial nerves intact. LABORATORY DATA: Reviewed. ASSESSMENT AND PLAN: 1. Stage 6 chronic kidney disease, stable. 2. Hyperkalemia, stable. 3. Anemia, stable. Medication based on GFR appropriate. Job ID: [id number]
[2020-03-31] MEDS: HumaLOG 300 UNITS/3 ML VIAL SC PRN (11:33)
[2020-03-31] MEDS: Sevelamer Carbonate 800 MG TAB PO SCH (16:24)
[2020-03-31 16:25] LABS: Anion Gap 22 mmol/L (10-20); BUN (Urea Nitrogen) 62 mg/dL (8.9-20.6); Calc. Creatinine Clearance 9 mL/min (70-130); Carbon Dioxide 28 mmol/L (22-29); Chloride 92 mmol/L (98-107); Glucose 115 mg/dL (70-105); Potassium 4.9 mmol/L (3.5-5.1); Sodium 137 mmol/L (136-145)
[2020-03-31] MEDS ORDERED: Labetalol HCl 100 MG/20 ML VIAL SLOW IVP PRN (19:59)
[2020-03-31] MEDS: Gabapentin 300 MG CAP PO SCH (20:38)
[2020-04-01 05:05] LABS: #Basophils 0.1 thou/uL (0.0-0.2); #Eosinphils 0.5 thou/uL (0.0-0.7); #Lymphocytes 4.1 thou/uL (1.20-3.40); #Monocytes 0.9 thou/uL (0.11-0.59); #Neutrophils 4.5 thou/uL (1.40-6.50); %Basophils 1.2 % (0.0-1.0); %Eosinophils 4.6 % (0.0-10.0); %Lymphocytes 40.8 % (21.0-51.0); %Neutrophils 44.5 % (42.0-75.0); Mean Corpuscular HGB CONC 33.9 g/dL (32.0-36.0); Mean Corpuscular Hemoglobin 32.6 pg (27.0-31.0); Mean Corpuscular Volume 96.2 fL (78.0-98.0); Mean Platelet Volume 8.3 fL (7.4-10.4); Platelet Count 265 thou/uL (130-400); RBC Distribution Width 12.4 % (11.5-14.5); Red Blood Cell (RBC) Count 4.29 mill/uL (4.70-6.10); White Blood Cell (WBC) Count 10.1 thou/uL (4.8-10.8)
[2020-04-01 05:33] LABS: Anion Gap 27 mmol/L (10-20); BUN (Urea Nitrogen) 80 mg/dL (8.9-20.6); Calc. Creatinine Clearance 9 mL/min (70-130); Calcium 9.6 mg/dL (7.8-10.44); Carbon Dioxide 24 mmol/L (22-29); Chloride 90 mmol/L (98-107); Glucose 228 mg/dL (70-105); Potassium 5.5 mmol/L (3.5-5.1); Sodium 135 mmol/L (136-145)
[2020-04-01] MEDS: HumaLOG 300 UNITS/3 ML VIAL SC PRN ×3 (06:25→17:52)
--- NOTE | 2020-04-01 07:36 | PDOC.HOSPP ---
- Subjective Encounter Date: 04/01/20 Encounter Time: 10:00 Subjective: Patient tired. No other complaints. In dialysis. - Objective Vital Signs & Weight: Vital Signs (12 hours) Temp Pulse Resp BP Pulse Ox 04/01/20 04:47 98.3 F 90 16 143/98 H 97 Weight Weight 198 lb 4 oz Most Recent Monitor Data Heart Rate from ECG 93 NIBP 122/79 NIBP BP-Mean 93 Respiration from ECG 21 SpO2 100 I&O: 03/31/20 04/01/20 04/02/20 06:59 06:59 06:59 Intake Total 1140 Output Total 0 Balance 1140 Result Diagrams: 04/01/20 04:30 04/01/20 04:31 Additional Labs: Accuchecks 04/01/20 03/31/20 03/31/20 06:03 20:50 17:01 POC Glucose 241 H 176 H 97 03/31/20 10:54 POC Glucose 373 H Hospitalist ROS - Review of Systems Constitutional: denies: fever, chills Respiratory: denies: cough, shortness of breath Cardiovascular: denies: chest pain, palpitations Gastrointestinal: denies: nausea, vomiting, abdominal pain - Medication Medications: Active Medications Generic Name Dose Route Start Last Admin Trade Name Freq PRN Reason Stop Dose Admin Calcium Carbonate 2,000 mg 03/31/20 08:00 03/31/20 16:23 Calcium Carbonate 500 Mg Chewtab PO 2,000 mg TID-WM DELILAH Administration Calcium Carbonate 2,000 mg 03/30/20 21:00 03/31/20 20:38 Calcium Carbonate 500 Mg Chewtab PO 2,000 mg HS DELILAH Administration Carvedilol 6.25 mg 03/31/20 08:00 03/31/20 16:23 Carvedilol 6.25 Mg Tab PO 6.25 mg BID-WM DELILAH Administration Gabapentin 300 mg 03/31/20 21:00 03/31/20 20:38 Gabapentin 300 Mg Cap PO 300 mg HS DELILAH Administration Heparin Sodium (Porcine) 5,000 units 03/30/20 21:00 03/31/20 20:52 Heparin 5,000 Units/Ml Vial SC 5,000 units TID DELILAH Administration Insulin Human Lispro 0 units 03/31/20 09:23 04/01/20 06:25 Humalog 300 Units/3 Ml Vial SC 4 unit .MODERATE SLIDING SC PRN Administration Moderate Correctional Scale Quetiapine Fumarate 200 mg 03/30/20 21:00 03/31/20 20:37 Quetiapine Fumarate 200 Mg Tab PO 200 mg HS DELILAH Administration Sertraline HCl 25 mg 03/31/20 21:00 03/31/20 20:53 Sertraline Hcl 25 Mg Tab PO 25 mg 2100 DELILAH Administration Sevelamer Carbonate 800 mg 03/31/20 17:00 03/31/20 16:24 Sevelamer Carbonate 800 Mg Tab PO 800 mg BID-WM DELILAH Administration Sodium Chloride 10 ml 03/31/20 21:00 03/31/20 20:53 Flush - Normal Saline 10 Ml Syringe IVF 10 ml Q12HR DELILAH Administration - Exam General Appearance: NAD, awake alert ENT: moist mucosa Heart: RRR, no murmur, no gallops, no rubs Respiratory: CTAB, no wheezes, no rales, no ronchi Gastrointestinal: soft, non-tender, non-distended, normal bowel sounds Psychiatric: normal affect, normal behavior, A&O x 3 Hosp A/P - Plan (1) End-stage renal disease on hemodialysis Code(s): N18.6 - END STAGE RENAL DISEASE; Z99.2 - DEPENDENCE ON RENAL DIALYSIS Status: Acute (2) Hyperkalemia Code(s): E87.5 - HYPERKALEMIA Status: Acute (3) Type 1 diabetes mellitus Status: Chronic (4) HLD (hyperlipidemia) Code(s): E78.5 - HYPERLIPIDEMIA, UNSPECIFIED Status: Chronic (5) Hypertension Code(s): I10 - ESSENTIAL (PRIMARY) HYPERTENSION Status: Chronic - Plan * Hyperkalemia- in the setting of ESRD, unclear the reason for recurrent epis odes- high again this morning, though still less than admission, this has been happening repeatedly, including right after dialysis when came in, Dr. Mendes following, discussing having AV fistula cleaned out with patient * ESRD- continue dialysis as per nephrology * HTN- blood pressure BP elevated yesterday, so resume home dose Carvedilol and start Procardia back up * DM - blood glucose is elevated ( however day of admission he had a hypoglycemic episode. Started a SSI) * Further recommendations as per Nephrology, home when cleared by Dr. Mendes
[2020-04-01] MEDS ORDERED: Non-Formulary Item 1 EACH (Calcitriol [Calcitriol] 0.5 MCG Capsule) PO SCH (09:00)
[2020-04-01] MEDS ORDERED: FERRIC CITRATE 210 MG PO PRN (09:04)
[2020-04-01] MEDS ORDERED: FERRIC CITRATE 210 MG PO SCH (12:00)
[2020-04-01] MEDS ORDERED: Calcium Carbonate 500 MG ChewTAB PO SCH (12:00)
[2020-04-01] MEDS: Carvedilol 6.25 MG TAB PO SCH ×2 (13:12→20:58)
[2020-04-01] MEDS: NIFEdipine XL 90 MG TAB PO SCH ×2 (13:15→20:59)
[2020-04-01] MEDS: Folic Acid/Vit B Comp W-C PO SCH (14:24)
[2020-04-01] MEDS: Sevelamer Carbonate 800 MG TAB PO SCH ×2 (14:24→16:42)
[2020-04-01] MEDS: Calcitriol 0.25 MCG CAP PO SCH (14:25)
[2020-04-01] MEDS: Calcium Carbonate 500 MG ChewTAB PO SCH ×3 (14:25→21:07)
[2020-04-01] MEDS: Heparin 5,000 UNITS/ML VIAL SC SCH ×3 (14:26→20:49)
--- NOTE | 2020-04-01 16:59 | PDOC.BPN ---
- Brief Progress Note Encounter Date: 04/01/20 Encounter Time: 16:59 Subjective: Patient is seen and examined in the room. He tolerated hemodialysis well today. He does not have new complaints Review of systems Gen.: No fever, no chills All the 14 systems reviewed except for the ones mentioned above are negative Physical examination Vital Signs (24 hours) Temp Pulse Resp BP Pulse Ox 04/01/20 16:34 98.2 F 96 16 135/90 95 04/01/20 13:11 98.1 F 106 H 16 114/87 95 04/01/20 07:40 95 04/01/20 07:39 97.5 F L 93 16 186/113 H 100 04/01/20 04:47 98.3 F 90 16 143/98 H 97 Intake & Output - 24 hours 04/01/20 04/02/20 06:59 06:59 Intake Total 1140 Output Total 0 Balance 1140 Weight 198 lb 4 oz Intake: Oral 1140 Output: Urine 0 Other: Voiding Method Urinal Urinal Constitutional: comfortable, not in pain HEENT: Mucous membranes moist, no icterus Neck: Trachea midline, no lymphadenopathy Heart: Regular rate and rhythm; no murmurs Lungs: Air entry equal bilateral; no wheezes Abdomen: Soft; nontender; no guarding/tenderness/rebound Extremities: Right upper extremity AV fistula Neurological: Patient is awake, following commands Skin: No rash, no ulcers Psychological: Not agitated Labs and Imaging reviewed Laboratory Results - last 24 hr 04/01/20 04/01/20 04/01/20 04:30 04:31 06:03 WBC 10.1 RBC 4.29 L Hgb 14.0 Hct 41.3 L MCV 96.2 MCH 32.6 H MCHC 33.9 RDW 12.4 Plt Count 265 MPV 8.3 Neutrophils % 44.5 Lymphocytes % 40.8 Monocytes % 9.0 Eosinophils % 4.6 Basophils % 1.2 H Neutrophils # 4.5 Lymphocytes # 4.1 H Monocytes # 0.9 H Eosinophils # 0.5 Basophils # 0.1 Sodium 135 L Potassium 5.5 H Chloride 90 L Carbon Dioxide 24 Anion Gap 27 H BUN 80 H Creatinine 14.15 H Estimated GFR (MDRD) 4 Glucose 228 H POC Glucose 241 H Calcium 9.6 04/01/20 04/01/20 04/01/20 13:04 16:54 17:31 WBC RBC Hgb Hct MCV MCH MCHC RDW Plt Count MPV Neutrophils % Lymphocytes % Monocytes % Eosinophils % Basophils % Neutrophils # Lymphocytes # Monocytes # Eosinophils # Basophils # Sodium Potassium Chloride Carbon Dioxide Anion Gap BUN Creatinine Estimated GFR (MDRD) Glucose POC Glucose 190 H 440 H 391 H Calcium 04/01/20 20:32 WBC RBC Hgb Hct MCV MCH MCHC RDW Plt Count MPV Neutrophils % Lymphocytes % Monocytes % Eosinophils % Basophils % Neutrophils # Lymphocytes # Monocytes # Eosinophils # Basophils # Sodium Potassium Chloride Carbon Dioxide Anion Gap BUN Creatinine Estimated GFR (MDRD) Glucose POC Glucose 171 H Calcium Active Medications Generic Name Dose Route Start Last Admin Trade Name Freq PRN Reason Stop Dose Admin Acetaminophen 650 mg 03/30/20 18:12 04/01/20 13:13 Acetaminophen 325 Mg Tab PO 650 mg Q4H PRN Administration Headache/Fever/Mild Pain (1-3) Calcitriol 0.5 mcg 04/01/20 09:00 04/01/20 14:25 Calcitriol 0.25 Mcg Cap PO 0.5 mcg DAILY DELILAH Administration Calcium Carbonate 1,000 mg 04/01/20 21:00 Calcium Carbonate 500 Mg Chewtab PO HS DELILAH Carvedilol 12.5 mg 04/01/20 09:00 04/01/20 13:12 Carvedilol 6.25 Mg Tab PO 12.5 mg BID DELILAH Administration Dextrose/Water 25 gm 03/31/20 09:23 Dextrose 50% Abboject 50 Ml Syringe SLOW IVP PRN PRN Hypoglycemia Gabapentin 300 mg 03/31/20 21:00 03/31/20 20:38 Gabapentin 300 Mg Cap PO 300 mg HS DELILAH Administration Glucagon 1 mg 03/31/20 09:23 Glucagon 1 Mg/Ml Vial IM PRN PRN Hypoglycemia Heparin Sodium (Porcine) 5,000 units 03/30/20 21:00 04/01/20 16:11 Heparin 5,000 Units/Ml Vial SC Not Given TID DELILAH Dextrose/Water 1,000 mls @ 0 mls/hr 03/31/20 09:23 D5w IV .Q0M PRN Hypoglycemia As Directed Insulin Human Lispro 0 units 03/31/20 09:23 04/01/20 17:52 Humalog 300 Units/3 Ml Vial SC 10 unit .MODERATE SLIDING SC PRN Administration Moderate Correctional Scale Insulin Human Lispro 0 units 03/31/20 09:23 Humalog 300 Units/3 Ml Vial SC .BEDTIME SLIDING SC PRN Bedtime Correctional Scale Isosorbide Mononitrate 30 mg 04/01/20 09:00 04/01/20 13:13 Isosorbide Mononitrate Er 30 Mg Tab PO 30 mg DAILY DELILAH Administration Labetalol HCl 20 mg 03/31/20 19:59 Labetalol Hcl 100 Mg/20 Ml Vial SLOW IVP Q4H PRN SBP > 180 and HR >/= 70 Nifedipine 90 mg 04/01/20 09:00 04/01/20 13:15 Nifedipine Xl 90 Mg Tab PO 90 mg BID DELILAH Administration Ferric Citrate [ 0 tab 04/01/20 12:00 Auryxia] 210 Mg PO Tablet) TID-WM DELILAH Ferric Citrate [ 0 tab 04/01/20 09:04 Auryxia] 210 Mg PO Tablet) PRN PRN SNACKS Ondansetron HCl 4 mg 03/30/20 18:12 Ondansetron Pf 4 Mg/2 Ml Vial IVP Q6H PRN Nausea/Vomiting Ondansetron HCl 4 mg 03/30/20 18:12 Ondansetron Odt 4 Mg Tab PO Q6H PRN Nausea/Vomiting Pantoprazole Sodium 40 mg 04/01/20 09:00 04/01/20 14:25 Pantoprazole 40 Mg Tab PO 40 mg DAILY DELILAH Administration Quetiapine Fumarate 150 mg 04/01/20 21:00 Quetiapine Fumarate 100 Mg Tab PO HS DELILAH Sertraline HCl 25 mg 04/01/20 21:00 Sertraline Hcl 25 Mg Tab PO HS DELILAH Sevelamer Carbonate 800 mg 03/31/20 17:00 04/01/20 16:42 Sevelamer Carbonate 800 Mg Tab PO 800 mg BID-WM DELILAH Administration Sodium Chloride 10 ml 03/31/20 21:00 04/01/20 14:38 Flush - Normal Saline 10 Ml Syringe IVF 10 ml Q12HR DELILAH Administration Sodium Chloride 10 ml 03/31/20 09:45 Flush - Normal Saline 10 Ml Syringe IVF PRN PRN Saline Flush Vitamin B Complex/Vit C/Folic Acid 1 tab 04/01/20 09:00 04/01/20 14:24 Folic Acid/Vit B Comp W-C PO 1 tab DAILY DELILAH Administration Assessment and plan CKD stage Hypertension Anemia Secondary hyperparathyroidism -Patient had hemodialysis today with UF of 3 L. Patient's blood pressure is stable after hemodialysis. He is on Coreg, isosorbide and nifedipine. Patient has concern regarding hyperkalemia. Discussed at length regarding mechanism of hyperkalemia in ESRD patients. He says he is compliant with the renal diet. Patient's hemoglobin is stable, continue to monitor. Continue with calcitriol, sevelamer Thank you for allowing me to participate in the management of this pt
[2020-04-01] MEDS: Gabapentin 300 MG CAP PO SCH (20:58)
[2020-04-01] MEDS ORDERED: QUEtiapine Fumarate ER 150 MG TAB PO SCH (21:00)
[2020-04-02 04:58] LABS: #Basophils 0.1 thou/uL (0.0-0.2); #Eosinphils 0.5 thou/uL (0.0-0.7); #Lymphocytes 4.5 thou/uL (1.20-3.40); #Monocytes 0.8 thou/uL (0.11-0.59); #Neutrophils 3.9 thou/uL (1.40-6.50); %Basophils 1.2 % (0.0-1.0); %Eosinophils 5.2 % (0.0-10.0); %Lymphocytes 45.8 % (21.0-51.0); %Monocytes 8.1 % (0.0-10.0); %Neutrophils 39.6 % (42.0-75.0); Mean Corpuscular HGB CONC 33.6 g/dL (32.0-36.0); Mean Corpuscular Hemoglobin 32.2 pg (27.0-31.0); Mean Corpuscular Volume 95.7 fL (78.0-98.0); Mean Platelet Volume 8.1 fL (7.4-10.4); Platelet Count 253 thou/uL (130-400); RBC Distribution Width 12.4 % (11.5-14.5); Red Blood Cell (RBC) Count 4.04 mill/uL (4.70-6.10); White Blood Cell (WBC) Count 9.8 thou/uL (4.8-10.8)
[2020-04-02 05:21] LABS: Anion Gap 22 mmol/L (10-20); BUN (Urea Nitrogen) 52 mg/dL (8.9-20.6); Calc. Creatinine Clearance 11 mL/min (70-130); Calcium 8.6 mg/dL (7.8-10.44); Carbon Dioxide 27 mmol/L (22-29); Chloride 92 mmol/L (98-107); Glucose 215 mg/dL (70-105); Potassium 4.7 mmol/L (3.5-5.1); Sodium 136 mmol/L (136-145)
[2020-04-02] MEDS: HumaLOG 300 UNITS/3 ML VIAL SC PRN (06:01)
--- NOTE | 2020-04-02 07:18 | PDOC.HOSPP ---
- Subjective Encounter Date: 04/02/20 Encounter Time: 10:00 Subjective: Patient without complaints. Has an appointment scheduled to get vistulogram down outpatient on . - Objective Vital Signs & Weight: Vital Signs (12 hours) Temp Pulse Resp BP BP Pulse Ox 04/02/20 05:10 107/73 04/02/20 04:43 98.6 F 70 16 76/50 L 97 04/01/20 19:50 98.6 F 94 16 137/87 95 Weight Weight 197 lb 13.204 oz Most Recent Monitor Data Heart Rate from ECG 93 NIBP 122/79 NIBP BP-Mean 93 Respiration from ECG 21 SpO2 100 I&O: 04/01/20 04/02/20 04/03/20 06:59 06:59 06:59 Intake Total 1140 240 Output Total 0 0 Balance 1140 240 Result Diagrams: 04/02/20 04:14 04/02/20 04:14 Additional Labs: Accuchecks 04/02/20 04/01/20 04/01/20 05:34 20:32 17:31 POC Glucose 206 H 171 H 391 H 04/01/20 04/01/20 16:54 13:04 POC Glucose 440 H 190 H Hospitalist ROS - Review of Systems Constitutional: denies: fever, chills, weakness Respiratory: denies: cough, shortness of breath Cardiovascular: denies: chest pain, palpitations Gastrointestinal: denies: nausea, vomiting, abdominal pain - Medication Medications: Active Medications Generic Name Dose Route Start Last Admin Trade Name Freq PRN Reason Stop Dose Admin Acetaminophen 650 mg 03/30/20 18:12 04/01/20 13:13 Acetaminophen 325 Mg Tab PO 650 mg Q4H PRN Administration Headache/Fever/Mild Pain (1-3) Calcitriol 0.5 mcg 04/01/20 09:00 04/01/20 14:25 Calcitriol 0.25 Mcg Cap PO 0.5 mcg DAILY DELILAH Administration Calcium Carbonate 1,000 mg 04/01/20 21:00 04/01/20 21:07 Calcium Carbonate 500 Mg Chewtab PO 1,000 mg HS DELILAH Administration Carvedilol 12.5 mg 04/01/20 09:00 04/01/20 20:58 Carvedilol 6.25 Mg Tab PO 12.5 mg BID DELILAH Administration Gabapentin 300 mg 03/31/20 21:00 04/01/20 20:58 Gabapentin 300 Mg Cap PO 300 mg HS DELILAH Administration Heparin Sodium (Porcine) 5,000 units 03/30/20 21:00 04/01/20 20:49 Heparin 5,000 Units/Ml Vial SC 5,000 units TID DELILAH Administration Insulin Human Lispro 0 units 03/31/20 09:23 04/02/20 06:01 Humalog 300 Units/3 Ml Vial SC 4 unit .MODERATE SLIDING SC PRN Administration Moderate Correctional Scale Isosorbide Mononitrate 30 mg 04/01/20 09:00 04/01/20 13:13 Isosorbide Mononitrate Er 30 Mg Tab PO 30 mg DAILY DELILAH Administration Nifedipine 90 mg 04/01/20 09:00 04/01/20 20:59 Nifedipine Xl 90 Mg Tab PO 90 mg BID DELILAH Administration Pantoprazole Sodium 40 mg 04/01/20 09:00 04/01/20 14:25 Pantoprazole 40 Mg Tab PO 40 mg DAILY DELILAH Administration Quetiapine Fumarate 150 mg 04/01/20 21:00 04/01/20 20:59 Quetiapine Fumarate 100 Mg Tab PO 150 mg HS DELILAH Administration Sertraline HCl 25 mg 04/01/20 21:00 04/01/20 20:59 Sertraline Hcl 25 Mg Tab PO 25 mg HS DELILAH Administration Sevelamer Carbonate 800 mg 03/31/20 17:00 04/01/20 16:42 Sevelamer Carbonate 800 Mg Tab PO 800 mg BID-WM DELILAH Administration Sodium Chloride 10 ml 03/31/20 21:00 04/01/20 21:00 Flush - Normal Saline 10 Ml Syringe IVF 10 ml Q12HR DELILAH Administration Vitamin B Complex/Vit C/Folic Acid 1 tab 04/01/20 09:00 04/01/20 14:24 Folic Acid/Vit B Comp W-C PO 1 tab DAILY DELILAH Administration - Exam General Appearance: NAD, awake alert ENT: moist mucosa Heart: RRR, no murmur, no gallops, no rubs Respiratory: CTAB, no wheezes, no rales, no ronchi Gastrointestinal: soft, non-tender, non-distended, normal bowel sounds Extremities: no edema Psychiatric: normal affect, normal behavior, A&O x 3 Hosp A/P - Plan (1) End-stage renal disease on hemodialysis Code(s): N18.6 - END STAGE RENAL DISEASE; Z99.2 - DEPENDENCE ON RENAL DIALYSIS Status: Acute (2) Hyperkalemia Code(s): E87.5 - HYPERKALEMIA Status: Acute (3) Type 1 diabetes mellitus Status: Chronic (4) HLD (hyperlipidemia) Code(s): E78.5 - HYPERLIPIDEMIA, UNSPECIFIED Status: Chronic (5) Hypertension Code(s): I10 - ESSENTIAL (PRIMARY) HYPERTENSION Status: Chronic - Plan * Hyperkalemia- in the setting of ESRD, unclear the reason for recurrent episodes- this has been happening repeatedly, including right after dialysis when came in, Dr. Mendes following, discussing having AV fistula cleaned out with patient, improved again today * ESRD- continue dialysis as per nephrology * HTN- blood pressure BP elevated yesterday, so resume home dose Carvedilol and start Procardia back up * DM - blood glucose is elevated ( however day of admission he had a hypoglycemic episode. Started a SSI) * Cleared for discharge by Dr. Mendes, has his outpatient dialysis scheduled for tomorrow
[2020-04-02] MEDS: Folic Acid/Vit B Comp W-C PO SCH (08:42)
[2020-04-02] MEDS: NIFEdipine XL 90 MG TAB PO SCH (08:42)
[2020-04-02] MEDS: Sevelamer Carbonate 800 MG TAB PO SCH (08:42)
[2020-04-02] MEDS: Carvedilol 6.25 MG TAB PO SCH (08:42)
[2020-04-02] MEDS: Heparin 5,000 UNITS/ML VIAL SC SCH (08:43)
[2020-04-02] MEDS: Calcitriol 0.25 MCG CAP PO SCH (08:43)
[2020-04-02 09:27] VITALS: BP 119/79; TEMP 97.6
--- NOTE | 2020-04-02 10:15 | PRG ---
DATE OF SERVICE: 04/02/2020 SUBJECTIVE: A 44-year-old gentleman, being seen for end-stage renal disease. The patient denies nausea, vomiting, or chest pain. OBJECTIVE: GENERAL: On exam, the patient is awake and alert. VITAL SIGNS: Afebrile, pulse 73, breathing at 16, and blood pressure 119/79. HEENT: Head normocephalic and atraumatic. Eyes intact, no ulcers. Nose intact, no ulcers. Ears intact, no ulcers. NECK: Supple. No JVD. CHEST: Symmetrical and clear. CARDIOVASCULAR: Shows S1 and S2, no rub, no murmur. GASTROINTESTINAL: Abdomen is soft, bowel sounds positive. EXTREMITIES: Show no edema or ulcers. SKIN: Shows no rash or petechiae. MUSCULOSKELETAL: Shows no joint swelling or stiffness. GENITOURINARY: Shows no Chan or CVA tenderness. NEUROLOGIC: Motor intact. Cranial nerves intact. LABORATORY DATA: Reviewed. ASSESSMENT AND PLAN: 1. Stage 6 chronic kidney disease. Plan dialysis. 2. Hypertension, stable. 3. Anemia, stable. 4. Medications based on glomerular filtration rate are appropriate. Job ID: [id number]
--- NOTE | 2020-04-02 13:08 | DIS ---
DATE OF ADMISSION: 03/30/2020 DATE OF DISCHARGE: 04/02/2020 PRIMARY CARE PHYSICIAN: Cait Rubi. REASON FOR ADMISSION: Hyperkalemia. DIAGNOSES AT DISCHARGE: 1. Recurrent hyperkalemia, resolved. 2. End-stage renal disease, on hemodialysis. 3. Diabetes mellitus type 1. 4. Hyperlipidemia. 5. Hypertension. PROCEDURES: None. CONSULTATIONS: Nephrology, Dr. Mendes. SUMMARY OF HOSPITAL COURSE: This is a 44-year-old man with a history of end-stage renal disease, on hemodialysis within the last year, who has had recurrent episodes of hyperkalemia even with adherence to his dialysis. The patient has been admitted multiple times for hyperkalemia. The patient was seen in the emergency room prior to admission, was found to be hyperkalemic, had hemodialysis done there. His symptoms of weakness resolved and he was discharged home. Then, he had dialysis again the day of admission, then had started having pain, weakness and fatigue later in the afternoon. He returned to the emergency room, was found to have hyperkalemia with potassium of 7.5. The patient was dialyzed again in the hospital, his potassium returned to normal. It did jump back up to 5.5 at one point and after dialysis this morning, it was back down to normal as well. He is asymptomatic. He does have a scheduled shunt evaluation on and he is scheduled for his outpatient dialysis tomorrow as well and he has been cleared by Dr. Mendes for discharge home. DISCHARGE MANAGEMENT: Discharged home. FOLLOWUP: Follow up for dialysis tomorrow and then for shunt evaluation on . Follow up with primary care physician in the next week. ACTIVITY: As tolerated. DIET: Renal diet, low potassium. DISCHARGE MEDICATIONS: 1. Calcitriol 0.5 mcg daily. 2. Carvedilol 12.5 mg twice a day. 3. Ferric citrate 210 mg as needed. 4. Dialyvite one tablet daily. 5. Gabapentin 300 mg at night. 6. Isosorbide mononitrate 30 mg daily. 7. Nifedipine extended release 90 mg twice a day. 8. Protonix 40 mg daily. 9. Seroquel 150 mg at night. 10. Sertraline 25 mg at night. 11. Renvela 800 mg twice a day. 12. Calcium carbonate as needed. Job ID: [id number]
== END 2020-04-02 11:56 | disposition home or self-care (01) | DRG 640 ==
LOC: ERS 15:24 → ERHOLD 17:48 → IMCU/EMU 20:38 → 2NO 03-31 09:31
PROVIDERS: ADMIT Family Medicine; ATTEND Emergency Medicine
DX: E87.5 Hyperkalemia (principal); N18.6 End stage renal disease; N25.81 Secondary hyperparathyroidism of renal origin; E78.5 Hyperlipidemia, unspecified; E10.22 Type 1 diabetes mellitus with diabetic chronic kidney disease; D64.9 Anemia, unspecified; I12.9 Hypertensive chronic kidney disease with stage 1 through stage 4 chronic kidney disease, or unspecified chronic kidney disease; Z96.41 Presence of insulin pump (external) (internal); E10.42 Type 1 diabetes mellitus with diabetic polyneuropathy; F31.9 Bipolar disorder, unspecified; F41.9 Anxiety disorder, unspecified; Z91.013 Allergy to seafood; Z91.048 Other nonmedicinal substance allergy status; Z99.2 Dependence on renal dialysis; Z90.89 Acquired absence of other organs; Z79.899 Other long term (current) drug therapy; Z20.828 Contact with and (suspected) exposure to other viral communicable diseases
CPT/HCPCS: 0240U; 36415; 36416; 71045; 80048; 80053; 83690; 83735; 84484; 85025; 90935; 93005; 96374; 96375; G0257; J1644; J1815; J2001; J2405

== ENCOUNTER 2020-04-20 23:13 | Inpatient (IN) | payer MEDICARE, OTHER ==
[~2020-04-20 23:13] MED LIST: Iopamidol-370 76% 500 ML 1 ML ONE
[2020-04-20 23:34] LABS: #Basophils 0.1 thou/uL (0.0-0.2); #Eosinphils 0.5 thou/uL (0.0-0.7); #Lymphocytes 3.2 thou/uL (1.20-3.40); #Monocytes 0.9 thou/uL (0.11-0.59); #Neutrophils 7.6 thou/uL (1.40-6.50); %Basophils 0.7 % (0.0-1.0); %Eosinophils 3.7 % (0.0-10.0); %Lymphocytes 26.5 % (21.0-51.0); %Monocytes 7.3 % (0.0-10.0); %Neutrophils 61.9 % (42.0-75.0); Hemoglobin 10.2 g/dL (14.0-18.0); Mean Corpuscular HGB CONC 35.7 g/dL (32.0-36.0); Mean Corpuscular Hemoglobin 34.2 pg (27.0-31.0); Mean Corpuscular Volume 95.8 fL (78.0-98.0); Mean Platelet Volume 7.8 fL (7.4-10.4); Platelet Count 238 thou/uL (130-400); RBC Distribution Width 12.1 % (11.5-14.5); Red Blood Cell (RBC) Count 2.98 mill/uL (4.70-6.10); White Blood Cell (WBC) Count 12.2 thou/uL (4.8-10.8)
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
[2020-04-20 23:59] LABS: ALT (SGPT) 14 U/L (8-55); AST (SGOT) 23 U/L (5-34); Albumin 4.1 g/dL (3.5-5.0); Alcohol Less than 10 mg/dL (Less than 10); Alkaline Phosphatase 75 U/L (40-110); Anion Gap 25 mmol/L (10-20); BUN (Urea Nitrogen) 82 mg/dL (8.9-20.6); Bilirubin, Total 0.7 mg/dL (0.2-1.2); Calc. Creatinine Clearance 0 mL/min (70-130); Calcium 8.7 mg/dL (7.8-10.44); Carbon Dioxide 25 mmol/L (22-29); Chloride 95 mmol/L (98-107); Globulin 3.3 g/dL (2.4-3.5); Glucose 106 mg/dL (70-105); Lipase 172 U/L (8-78); Potassium 6.2 mmol/L (3.5-5.1); Protein, Total 7.4 g/dL (6.0-8.3); Sodium 139 mmol/L (136-145)
[2020-04-21] MEDS ORDERED: Calcium Chloride 1 GM/10 ML Abboject SYRINGE ONE (00:21)
[2020-04-21] MEDS ORDERED: Dextrose 50% Abboject 50 ML SYRINGE ONE (00:21)
[2020-04-21] MEDS ORDERED: Insulin Regular 300 UNITS/3 ML VIAL ONE (00:21)
[2020-04-21] MEDS ORDERED: Sodium Bicarb 50 MEQ/50 ML Abboject 8.4% SYRINGE ONE (00:21)
[2020-04-21] MEDS ORDERED: hydrALAZINE 20 MG/ML VIAL SLOW IVP PRN (01:10)
[2020-04-21] MEDS ORDERED: Dextrose 50% Abboject 50 ML SYRINGE SLOW IVP PRN (01:10)
[2020-04-21] MEDS ORDERED: Morphine 4 MG/ML VIAL SLOW IVP PRN (01:10)
[2020-04-21] MEDS ORDERED: Dextrose 5% in Water 1,000 ML IV PRN (01:10)
[2020-04-21 01:25] LABS: CKMB 4.3 ng/mL (0-6.6)
[2020-04-21 01:42] LABS: Magnesium 2.2 mg/dL (1.6-2.6)
[2020-04-21 01:48] LABS: Phosphorus 9.5 mg/dL (2.3-4.7)
[2020-04-21 02:18] LABS: HBSAg Index 0.19 S/CO (0-0.99); Hep B Surf Ag Non-Reactive S/CO (NonReactive)
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
[2020-04-21] MEDS ORDERED: Acetaminophen/Codeine 30-300mg Tablet ONE ×2 (05:13→11:24)
[2020-04-21] MEDS: Acetaminophen/Codeine 30-300mg Tablet PO PRN ×3 (05:18→22:18)
[2020-04-21 06:21] LABS: SARS-CoV-2 PCR by NAA Not Detected (NotDetected)
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
[2020-04-21] MEDS: Acetaminophen 325 MG TAB PO SCH ×3 (07:24→17:54)
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
[2020-04-21 08:21] LABS: #Basophils 0.1 thou/uL (0.0-0.2); #Eosinphils 0.4 thou/uL (0.0-0.7); #Lymphocytes 2.9 thou/uL (1.20-3.40); #Monocytes 0.9 thou/uL (0.11-0.59); #Neutrophils 9.1 thou/uL (1.40-6.50); %Basophils 0.4 % (0.0-1.0); %Eosinophils 2.6 % (0.0-10.0); %Monocytes 6.6 % (0.0-10.0); %Neutrophils 68.4 % (42.0-75.0); Hemoglobin 10.1 g/dL (14.0-18.0); Mean Corpuscular HGB CONC 34.7 g/dL (32.0-36.0); Mean Corpuscular Hemoglobin 32.6 pg (27.0-31.0); Mean Corpuscular Volume 94.1 fL (78.0-98.0); Mean Platelet Volume 7.5 fL (7.4-10.4); Platelet Count 242 thou/uL (130-400); RBC Distribution Width 12.3 % (11.5-14.5); Red Blood Cell (RBC) Count 3.11 mill/uL (4.70-6.10); White Blood Cell (WBC) Count 13.4 thou/uL (4.8-10.8)
[2020-04-21 08:42] LABS: Anion Gap 23 mmol/L (10-20); BUN (Urea Nitrogen) 50 mg/dL (8.9-20.6); Calc. Creatinine Clearance 0 mL/min (70-130); Calcium 8.8 mg/dL (7.8-10.44); Carbon Dioxide 25 mmol/L (22-29); Chloride 96 mmol/L (98-107); Glucose 202 mg/dL (70-105); Magnesium 2.1 mg/dL (1.6-2.6); Phosphorus 6.5 mg/dL (2.3-4.7); Sodium 140 mmol/L (136-145)
[2020-04-21] MEDS ORDERED: Famotidine 20 MG TAB PO SCH (09:00)
[2020-04-21] MEDS ORDERED: Famotidine 20 MG TAB ONE (09:15)
[2020-04-21] MEDS: Gabapentin 300 MG CAP PO SCH ×4 (11:19→22:17)
[2020-04-21] MEDS: Polyethylene Glycol 3350 17 GM Packet PO SCH (11:21)
[2020-04-21] MEDS: Senokot S 8.6-50 MG TAB PO SCH ×2 (11:30→22:16)
[2020-04-21] MEDS: Carvedilol 6.25 MG TAB PO SCH ×2 (11:31→22:17)
[2020-04-21] MEDS: Ondansetron PF 4 MG/2 ML Vial IVP PRN (11:47)
[2020-04-21] MEDS ORDERED: Ondansetron PF 4 MG/2 ML Vial ONE (11:48)
[2020-04-21 16:19] VITALS: BMI 31.9
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
[2020-04-21] MEDS ORDERED: Insulin Regular 300 UNITS/3 ML VIAL SC PRN (17:49)
[2020-04-21] MEDS: Insulin Regular 300 UNITS/3 ML VIAL SC PRN (18:14)
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
[2020-04-21] MEDS: NIFEdipine XL 90 MG TAB PO SCH (22:16)
[2020-04-21] MEDS: Calcium Carbonate 500 MG ChewTAB PO SCH (22:16)
[2020-04-22] MEDS: Acetaminophen 325 MG TAB PO SCH ×5 (01:32→23:33)
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
[2020-04-22 04:38] LABS: #Basophils 0.1 thou/uL (0.0-0.2); #Eosinphils 0.5 thou/uL (0.0-0.7); #Monocytes 0.8 thou/uL (0.11-0.59); #Neutrophils 7.7 thou/uL (1.40-6.50); %Basophils 0.6 % (0.0-1.0); %Eosinophils 3.8 % (0.0-10.0); %Lymphocytes 24.8 % (21.0-51.0); %Monocytes 6.8 % (0.0-10.0); Hemoglobin 10.4 g/dL (14.0-18.0); Mean Corpuscular HGB CONC 35.1 g/dL (32.0-36.0); Mean Corpuscular Hemoglobin 33.4 pg (27.0-31.0); Mean Corpuscular Volume 95.2 fL (78.0-98.0); Mean Platelet Volume 7.7 fL (7.4-10.4); Platelet Count 252 thou/uL (130-400); RBC Distribution Width 12.3 % (11.5-14.5); Red Blood Cell (RBC) Count 3.12 mill/uL (4.70-6.10)
[2020-04-22 04:51] LABS: Troponin I 0.043 ng/mL (< 0.028)
[2020-04-22 04:59] LABS: Anion Gap 21 mmol/L (10-20); BUN (Urea Nitrogen) 74 mg/dL (8.9-20.6); Calc. Creatinine Clearance 9 mL/min (70-130); Carbon Dioxide 24 mmol/L (22-29); Chloride 95 mmol/L (98-107); Glucose 129 mg/dL (70-105); Magnesium 2.2 mg/dL (1.6-2.6); Phosphorus 9.3 mg/dL (2.3-4.7); Sodium 135 mmol/L (136-145)
[2020-04-22] MEDS: Acetaminophen/Codeine 30-300mg Tablet PO PRN ×3 (05:24→20:10)
[2020-04-22] MEDS: Calcium Carbonate 500 MG ChewTAB PO SCH ×4 (09:23→20:08)
[2020-04-22] MEDS: Ondansetron PF 4 MG/2 ML Vial IVP PRN (12:44)
[2020-04-22] MEDS: Insulin Regular 300 UNITS/3 ML VIAL SC PRN (12:47)
[2020-04-22] MEDS: NIFEdipine XL 90 MG TAB PO SCH ×2 (12:48→20:10)
[2020-04-22] MEDS: Senokot S 8.6-50 MG TAB PO SCH ×2 (12:49→20:10)
[2020-04-22] MEDS: Calcitriol 0.25 MCG CAP PO SCH (12:49)
[2020-04-22] MEDS: Carvedilol 6.25 MG TAB PO SCH ×2 (12:52→20:09)
[2020-04-22] MEDS: Polyethylene Glycol 3350 17 GM Packet PO SCH (12:52)
[2020-04-22] MEDS: Folic Acid/Vit B Comp W-C PO SCH (12:53)
[2020-04-22] MEDS: Gabapentin 300 MG CAP PO SCH ×4 (12:54→20:14)
[2020-04-22] MEDS: Sevelamer Carbonate 800 MG TAB PO SCH ×2 (13:46→17:54)
[2020-04-22] MEDS ORDERED: Albumin 25% 25 GM/100 ML BOT IVPB SCH (17:10)
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
--- NOTE | 2020-04-22 17:49 | PRG ---
DATE OF SERVICE: 04/22/2020 SUBJECTIVE: Patient was seen and examined at bedside and overnight events noted. Patient denies any shortness of breath or chest pain or palpitation. No history of nausea or vomiting or diarrhea or fever or chills or cramps. OBJECTIVE: General: This is a well-built male, in no apparent distress. Vital Signs: Temperature 98.4. Heart Rate 90. Respiratory rate 18. Blood pressure 110/60. HEENT: Atraumatic, normocephalic. Oral mucosa is moist. Neck: Supple. Cardiovascular: S1, S2 heard. Rate and rhythm regular. Respiratory: Clear to auscultation. Gastrointestinal: Abdomen is soft. Musculoskeletal: No tenderness. No edema. Dermatologic: No skin rash. Neurologic: Alert and awake and oriented x3. No focal neurologic deficits. Moving all the extremities. Psychiatric: Mood and affect normal. LABORATORY DATA: Potassium 5.0, BUN is 74, creatinine is 13.7. ASSESSMENT AND PLAN: 1. End-stage renal disease. Continue dialysis as tolerated. 2. Hyperkalemia, improved. 3. Anemia of chronic disease. 4. Edema. 5. Orthostatic hypotension. We will give a dose of albumin and monitor labs. Monitor blood pressure closely. We will recheck labs in the morning. Job ID: [id number]
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
[2020-04-23] MEDS: Acetaminophen/Codeine 30-300mg Tablet PO PRN ×3 (04:10→18:24)
[2020-04-23 05:18] LABS: Anion Gap 19 mmol/L (10-20); BUN (Urea Nitrogen) 47 mg/dL (8.9-20.6); Calc. Creatinine Clearance 11 mL/min (70-130); Carbon Dioxide 31 mmol/L (22-29); Chloride 90 mmol/L (98-107); Glucose 181 mg/dL (70-105); Potassium 4.5 mmol/L (3.5-5.1); Sodium 135 mmol/L (136-145)
[2020-04-23] MEDS: Acetaminophen 325 MG TAB PO SCH ×3 (05:50→18:24)
[2020-04-23] MEDS: Insulin Regular 300 UNITS/3 ML VIAL SC PRN ×3 (06:02→18:26)
[2020-04-23] MEDS: Ondansetron PF 4 MG/2 ML Vial IVP PRN ×2 (08:18→14:31)
[2020-04-23] MEDS ORDERED: Scopolamine 1.5 mg/72 hour Patch TD SCH ×2 (10:00→15:00)
[2020-04-23] MEDS: Calcitriol 0.25 MCG CAP PO SCH (10:16)
[2020-04-23] MEDS: Senokot S 8.6-50 MG TAB PO SCH ×2 (10:17→20:00)
[2020-04-23] MEDS: Polyethylene Glycol 3350 17 GM Packet PO SCH (10:17)
[2020-04-23] MEDS: Folic Acid/Vit B Comp W-C PO SCH (10:17)
[2020-04-23] MEDS: Calcium Carbonate 500 MG ChewTAB PO SCH ×4 (10:18→19:59)
[2020-04-23] MEDS: Sevelamer Carbonate 800 MG TAB PO SCH ×2 (10:18→18:26)
[2020-04-23] MEDS: NIFEdipine XL 90 MG TAB PO SCH ×4 (10:26→20:01)
[2020-04-23] MEDS: Carvedilol 6.25 MG TAB PO SCH ×4 (10:26→20:01)
[2020-04-23] MEDS ORDERED: Promethazine HCl 25 MG/ML VIAL IM SCH (17:30)
--- NOTE | 2020-04-23 17:51 | PRG ---
DATE OF SERVICE: 04/23/2020 SUBJECTIVE: Patient was seen and examined at bedside and overnight events noted. Patient denies any shortness of breath or chest pain or palpitation. No history of nausea or vomiting or diarrhea or fever or chills or cramps. OBJECTIVE: GENERAL: This is a well-built male, in no apparent distress. VITAL SIGNS: Temperature 98.2. Heart rate 87. Respiratory rate 18. Blood pressure 165/100. HEENT: Atraumatic, normocephalic. Oral mucosa is moist. NECK: Supple. CARDIOVASCULAR: S1, S2 heard. Rate and rhythm regular. RESPIRATORY: Clear to auscultation. GASTROINTESTINAL: Abdomen is soft. MUSCULOSKELETAL: No tenderness. No edema. DERMATOLOGIC: No skin rash. NEUROLOGIC: Alert and awake and oriented x3. No focal neurologic deficits. Moving all the extremities. PSYCHIATRIC: Mood and affect normal. LABORATORY DATA: Potassium is 4.5, BUN is 47, and creatinine is 11.5. ASSESSMENT AND PLAN: 1. End-stage renal disease. Continue dialysis as tolerated. 2. Edema. 3. History of hypertension. 4. Anemia of chronic disease. Plan to continue dialysis as tolerated. Job ID: [id number]
[2020-04-23] MEDS: Gabapentin 300 MG CAP PO SCH (20:01)
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
[2020-04-23] MEDS ORDERED: QUEtiapine Fumarate ER 50 MG TAB PO SCH (21:00)
[2020-04-24] MEDS: Acetaminophen 325 MG TAB PO SCH ×3 (00:52→12:58)
[2020-04-24] MEDS: Acetaminophen/Codeine 30-300mg Tablet PO PRN ×2 (03:51→09:56)
[2020-04-24] MEDS ORDERED: Albumin 25% 25 GM/100 ML BOT IVPB SCH (09:00)
[2020-04-24 09:24] VITALS: TEMP 98.5
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
--- NOTE | 2020-04-24 12:27 | PRG ---
DATE OF SERVICE: 04/24/2020 SUBJECTIVE: Patient was seen and examined at bedside and overnight events noted. Patient denies any shortness of breath or chest pain or palpitation. No history of nausea or vomiting or diarrhea or fever or chills or cramps. OBJECTIVE: GENERAL: This is a well-built male, in no acute distress. VITAL SIGNS: Temperature 98.5. Heart rate 83. Respiratory rate 18. Blood pressure 102/55. HEENT: Atraumatic, normocephalic. Oral mucosa is moist NECK: Supple. CARDIOVASCULAR: S1, S2 heard. Rate and rhythm regular. RESPIRATORY: Clear to auscultation. GASTROINTESTINAL: Abdomen is soft. MUSCULOSKELETAL: No tenderness. No edema. DERMATOLOGIC: No skin rash. NEUROLOGIC: Alert and awake and oriented X3. No focal neurologic deficits. Moving all the extremities. PSYCHIATRIC: Mood and affect normal. LABORATORY DATA: ASSESSMENT AND PLAN: 1. End-stage renal disease, continue dialysis. 2. Edema. 3. History of hypertension. 4. Anemia of chronic disease. Continue on dialysis as tolerated. We will monitor. Job ID: [id number]
[2020-04-24] MEDS: Calcium Carbonate 500 MG ChewTAB PO SCH ×2 (12:45→12:46)
[2020-04-24] MEDS: Folic Acid/Vit B Comp W-C PO SCH (12:45)
[2020-04-24] MEDS: Sevelamer Carbonate 800 MG TAB PO SCH (12:45)
[2020-04-24] MEDS: Calcitriol 0.25 MCG CAP PO SCH (12:45)
[2020-04-24] MEDS: Polyethylene Glycol 3350 17 GM Packet PO SCH (12:46)
[2020-04-24] MEDS: Senokot S 8.6-50 MG TAB PO SCH (12:47)
[2020-04-24] MEDS: Carvedilol 6.25 MG TAB PO SCH (12:57)
[2020-04-24] MEDS: NIFEdipine XL 90 MG TAB PO SCH (12:58)
[2020-04-24 13:20] VITALS: BP 125/63
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
--- NOTE | 2020-05-11 19:08 | EKG ---
Test Reason : Blood Pressure : / mmHG Vent. Rate : 078 BPM Atrial Rate : 078 BPM P-R Int : 154 ms QRS Dur : 100 ms QT Int : 404 ms P-R-T Axes : 044 026 060 degrees QTc Int : 460 ms Normal sinus rhythm Normal ECG Confirmed by PRIYA FRASER ([id number]), photo editor TYLER SQUIRES ([id number]) on 05/11/2020 7:08:05 PM Referred By: Confirmed By:PRIYA FRASER
== END 2020-04-24 15:05 | disposition home or self-care (01) | DRG 604 ==
LOC: ERS 23:13 → ERHOLD 04-21 01:10 → 2NO 04-21 15:19
PROVIDERS: ADMIT Surgery; ATTEND Surgery
PROC: 5A1D70Z Performance of Urinary Filtration, Intermittent, Less than 6 Hours Per Day (ICD-10-PCS; principal; 2020-04-21)
DX: S20.219A Contusion of unspecified front wall of thorax, initial encounter (principal); N18.6 End stage renal disease; I12.0 Hypertensive chronic kidney disease with stage 5 chronic kidney disease or end stage renal disease; F31.9 Bipolar disorder, unspecified; Z20.822 Contact with and (suspected) exposure to COVID-19; E78.5 Hyperlipidemia, unspecified; F41.9 Anxiety disorder, unspecified; F12.10 Cannabis abuse, uncomplicated; E10.22 Type 1 diabetes mellitus with diabetic chronic kidney disease; E10.42 Type 1 diabetes mellitus with diabetic polyneuropathy; E87.5 Hyperkalemia; E83.39 Other disorders of phosphorus metabolism; Z96.41 Presence of insulin pump (external) (internal); D63.1 Anemia in chronic kidney disease; R11.2 Nausea with vomiting, unspecified; I95.1 Orthostatic hypotension; Z99.2 Dependence on renal dialysis; Z79.899 Other long term (current) drug therapy; Z91.041 Radiographic dye allergy status; Z91.013 Allergy to seafood; Z79.4 Long term (current) use of insulin; V49.9XXA Car occupant (driver) (passenger) injured in unspecified traffic accident, initial encounter
CPT/HCPCS: 36415; 36416; 70450; 71260; 72125; 74177; 80048; 80053; 80307; 82553; 83690; 83735; 84100; 84484; 85025; 87340; 87635; 90935; 93005; 93306; 96374; 96375; G0257; G0390; J0360; J1815; J2270; J2405; J2550; P9047; Q9967; U0003; U0005

== ENCOUNTER 2020-04-28 15:02 | Inpatient (IN) | payer MEDICARE, OTHER ==
[2020-04-28] MEDS ORDERED: Ondansetron ODT 4 MG TAB ONE (15:52)
[2020-04-28] MEDS ORDERED: Ondansetron ODT 8 MG TAB ONE (16:32)
[2020-04-28 16:37] LABS: Hemoglobin 11.2 g/dL (14.0-18.0); Mean Corpuscular HGB CONC 36.2 g/dL (32.0-36.0); Mean Corpuscular Hemoglobin 34.9 pg (27.0-31.0); Mean Corpuscular Volume 96.5 fL (78.0-98.0); Mean Platelet Volume 8.1 fL (7.4-10.4); Platelet Count 267 thou/uL (130-400); RBC Distribution Width 12.2 % (11.5-14.5); Red Blood Cell (RBC) Count 3.22 mill/uL (4.70-6.10)
[2020-04-28 16:50] LABS: Eosinophils 2 % (0-10); Lymphocytes 14 % (21-51); MDiff Complete? YES; Monocytes 7 % (0-10); Neutrophil 77 % (42-75); Platelet Morphology Comment Appears Adequate; RBC Morphology Normal; White Blood Cell (WBC) Count 9.6 thou/uL (4.8-10.8)
--- NOTE | 2020-04-28 17:07 | CT ---
CT head noncontrast HISTORY: Dizziness. Headache. COMPARISON: 04/20/2020. FINDINGS: There is no evidence of acute intracranial hemorrhage or infarct. The ventricles appear nor mal in size, shape and position. There is no mass effect or shift of midline structures. Visualized paranasal sinuses remain well-aerated. IMPRESSION : No abnormalities are demonstrated.
--- NOTE | 2020-04-28 17:09 | RAD ---
Chest one view HISTORY: Vomiting. COMPARISON: 03/29/2020. FINDINGS: Cardiac silhouette is magnified by projection and upper limits of normal in size. Pulmonary vasculature is unremarkable. No focal infiltrate or evidence of free subdiaphragmatic gas. IMPRESSION : No abnormalities are demonstrated.
[2020-04-28 17:14] LABS: ALT (SGPT) 10 U/L (8-55); AST (SGOT) 27 U/L (5-34); Albumin 4.4 g/dL (3.5-5.0); Alkaline Phosphatase 61 U/L (40-110); Anion Gap 27 mmol/L (10-20); BUN (Urea Nitrogen) 53 mg/dL (8.9-20.6); Bilirubin, Total 0.6 mg/dL (0.2-1.2); Calc. Creatinine Clearance 0 mL/min (70-130); Calcium 8.9 mg/dL (7.8-10.44); Carbon Dioxide 22 mmol/L (22-29); Chloride 88 mmol/L (98-107); Globulin 3.5 g/dL (2.4-3.5); Glucose 152 mg/dL (70-105); Lipase 25 U/L (8-78); Magnesium 2.1 mg/dL (1.6-2.6); Protein, Total 7.9 g/dL (6.0-8.3); Sodium 130 mmol/L (136-145)
[2020-04-28 17:22] LABS: Potassium 6.7 mmol/L (3.5-5.1)
[2020-04-28] MEDS ORDERED: Sodium Bicarb 50 MEQ/50 ML Abboject 8.4% SYRINGE ONE ×2 (18:10→18:12)
[2020-04-28] MEDS ORDERED: Insulin Regular 300 UNITS/3 ML VIAL ONE (18:10)
[2020-04-28] MEDS ORDERED: Calcium Chloride 1 GM/10 ML Abboject SYRINGE ONE (18:10)
[2020-04-28] MEDS ORDERED: Dextrose 50% Abboject 50 ML SYRINGE ONE ×2 (18:10→21:44)
[2020-04-28] MEDS ORDERED: Acetaminophen 325 MG TAB PO PRN (19:01)
[2020-04-28] MEDS ORDERED: HYDROcodone/Acetaminophen 5/325 mg Tablet PO PRN (19:01)
--- NOTE | 2020-04-28 19:01 | ULT ---
Sonogram right upper quadrant HISTORY: Right upper quadrant pain. FINDINGS: Gallbladder is distended up to 11.7 cm without wall thickening, pericholecystic fluid, or s tone. Patient was reportedly not tender over the gallbladder fossa at the time of the exam. Common duct is 0.2 cm. Liver unremarkable without focal mass or intrahepatic biliary dilatation. No free fluid. Diffuse echogenicity of the right renal cortex is incidentally noted without hydronephrosis. IMPRESSION : No acute abnormalities are demonstrated.
[2020-04-28] MEDS ORDERED: hydrALAZINE 20 MG/ML VIAL SLOW IVP PRN (19:04)
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
[2020-04-28] MEDS ORDERED: Meclizine HCl 12.5 MG TAB PO PRN (19:44)
[2020-04-28] MEDS ORDERED: Dextrose 50% Abboject 50 ML SYRINGE SLOW IVP PRN (19:46)
[2020-04-28] MEDS ORDERED: Dextrose 5% in Water 1,000 ML IV PRN (19:46)
[2020-04-29] MEDS: Carvedilol 6.25 MG TAB PO SCH ×3 (03:37→20:43)
[2020-04-29] MEDS: NIFEdipine XL 90 MG TAB PO SCH ×2 (03:37→08:27)
[2020-04-29] MEDS: Heparin 5,000 UNITS/ML VIAL SC SCH ×4 (03:37→20:44)
[2020-04-29 04:44] LABS: #Eosinphils 0.3 thou/uL (0.0-0.7); #Lymphocytes 1.9 thou/uL (1.20-3.40); #Monocytes 0.6 thou/uL (0.11-0.59); #Neutrophils 4.3 thou/uL (1.40-6.50); %Basophils 0.5 % (0.0-1.0); %Eosinophils 3.6 % (0.0-10.0); %Lymphocytes 27.2 % (21.0-51.0); %Neutrophils 60.7 % (42.0-75.0); Hemoglobin 9.4 g/dL (14.0-18.0); Mean Corpuscular HGB CONC 34.6 g/dL (32.0-36.0); Mean Corpuscular Hemoglobin 33.1 pg (27.0-31.0); Mean Corpuscular Volume 95.6 fL (78.0-98.0); Mean Platelet Volume 7.2 fL (7.4-10.4); Platelet Count 308 thou/uL (130-400); Red Blood Cell (RBC) Count 2.84 mill/uL (4.70-6.10); White Blood Cell (WBC) Count 7.1 thou/uL (4.8-10.8)
[2020-04-29 05:10] LABS: Anion Gap 21 mmol/L (10-20); BUN (Urea Nitrogen) 23 mg/dL (8.9-20.6); Calc. Creatinine Clearance 15 mL/min (70-130); Calcium 9.3 mg/dL (7.8-10.44); Carbon Dioxide 25 mmol/L (22-29); Chloride 94 mmol/L (98-107); Glucose 97 mg/dL (70-105); Potassium 4.1 mmol/L (3.5-5.1); Sodium 136 mmol/L (136-145)
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
[2020-04-29] MEDS: Ondansetron PF 4 MG/2 ML Vial IVP PRN ×3 (08:58→20:43)
[2020-04-29 13:38] LABS: SARS-CoV-2 PCR NAA for Saliva Not Detected (NotDetected)
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
[2020-04-29] MEDS ORDERED: Sodium Chloride 0.9% 1,000 ML IV SCH (15:00)
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
--- NOTE | 2020-04-29 15:28 | PDOC.EEG ---
Neurology EEG Report - Report Report: This EEG was performed using 24 channel [employer] video EEG machine with 24 disc electrodes. This was an extended 2 hours 6 minutes of inpatient video EEG recording. Digital analysis of the EEG was done for spike and seizure detection which revealed no abnormalities. Background: There is a nonsustained posterior background rhythm of 9-10 Hz. The background rhythm attenuates with eye opening and enhances with eye closure. Hyperventilation: Not performed. Photic Stimulation: No significant response. Sleep: Drowsiness and sleep are observed EEG Diagnosis: Normal awake, drowsy and sleep EEG.
--- NOTE | 2020-04-29 19:00 | PRG ---
DATE OF SERVICE: 04/29/2020 SUBJECTIVE: A 44-year-old gentleman, being seen for end-stage renal disease. The patient denied nausea, vomiting, or chest pain. PHYSICAL EXAMINATION: GENERAL: The patient is awake and alert. VITAL SIGNS: Afebrile, pulse 80, breathing at 16, blood pressure 146/76. HEENT: Head normocephalic and atraumatic. Eyes intact, no ulcers. Nose intact, no ulcers. Ears intact, no ulcers. NECK: Supple. No JVD. CHEST: Symmetrical and clear. CARDIOVASCULAR: Shows S1 and S2, no rub, no murmur. GASTROINTESTINAL: Abdomen is soft, bowel sounds positive. EXTREMITIES: Show no edema or ulcers. SKIN: Shows no rash or petechiae. MUSCULOSKELETAL: Shows no joint swelling or stiffness. GENITOURINARY: Shows no Chan or CVA tenderness. NEUROLOGIC: Motor intact. Cranial nerves intact. LABORATORY DATA: Reviewed. ASSESSMENT AND PLAN: 1. Stage 6 chronic kidney disease, plan dialysis. 2. Hypertension, stable. 3. Anemia, stable. 4. Medication based on GFR appropriate. Job ID: [id number]
[2020-04-30 04:13] VITALS: BMI 33.5
[2020-04-30] MEDS ORDERED: Lidocaine 4% Cream 5 GM TUBE w/ Tegaderm TOP SCH (08:15)
[2020-04-30 08:28] LABS: #Basophils 0.1 thou/uL (0.0-0.2); #Eosinphils 0.4 thou/uL (0.0-0.7); #Lymphocytes 2.7 thou/uL (1.20-3.40); #Monocytes 0.6 thou/uL (0.11-0.59); #Neutrophils 3.8 thou/uL (1.40-6.50); %Eosinophils 4.8 % (0.0-10.0); %Lymphocytes 36.4 % (21.0-51.0); %Monocytes 7.3 % (0.0-10.0); %Neutrophils 50.6 % (42.0-75.0); Hemoglobin 8.9 g/dL (14.0-18.0); Mean Corpuscular HGB CONC 35.5 g/dL (32.0-36.0); Mean Corpuscular Hemoglobin 33.9 pg (27.0-31.0); Mean Corpuscular Volume 95.7 fL (78.0-98.0); Mean Platelet Volume 7.2 fL (7.4-10.4); Platelet Count 279 thou/uL (130-400); RBC Distribution Width 11.9 % (11.5-14.5); Red Blood Cell (RBC) Count 2.63 mill/uL (4.70-6.10); White Blood Cell (WBC) Count 7.5 thou/uL (4.8-10.8)
[2020-04-30 08:55] LABS: ALT (SGPT) 8 U/L (8-55); AST (SGOT) 21 U/L (5-34); Alkaline Phosphatase 59 U/L (40-110); Anion Gap 19 mmol/L (10-20); BUN (Urea Nitrogen) 38 mg/dL (8.9-20.6); Bilirubin, Total 0.4 mg/dL (0.2-1.2); Calc. Creatinine Clearance 10 mL/min (70-130); Calcium 8.5 mg/dL (7.8-10.44); Carbon Dioxide 27 mmol/L (22-29); Chloride 93 mmol/L (98-107); Globulin 3.1 g/dL (2.4-3.5); Glucose 109 mg/dL (70-105); Potassium 4.6 mmol/L (3.5-5.1); Protein, Total 7.1 g/dL (6.0-8.3); Sodium 134 mmol/L (136-145)
[2020-04-30] MEDS ORDERED: NIFEdipine XL 90 MG TAB PO SCH (09:00)
--- NOTE | 2020-04-30 12:29 | PRG ---
DATE OF SERVICE: SUBJECTIVE: A 44-year-old gentleman being seen for end-stage renal disease. The patient denied nausea or chest pain. PHYSICAL EXAMINATION: GENERAL: The patient is awake and alert. VITAL SIGNS: Pulse 84, breathing at 16, blood pressure 146/74. HEENT: Head normocephalic and atraumatic. Eyes intact, no ulcers. Nose intact, no ulcers. Ears intact, no ulcers. NECK: Supple. No JVD. CHEST: Symmetrical and clear. CARDIOVASCULAR: Shows S1 and S2, no rub, no murmur. GASTROINTESTINAL: Abdomen is soft, bowel sounds positive. EXTREMITIES: Show no edema or ulcers. SKIN: Shows no rash or petechiae. MUSCULOSKELETAL: Shows no joint swelling or stiffness. GENITOURINARY: Shows no Chan or CVA tenderness. NEUROLOGIC: Motor intact. Cranial nerves intact. LABORATORY DATA: Reviewed. ASSESSMENT: 1. Stage 6 chronic kidney disease. Plan dialysis. 2. Hypertension, stable. 3. Anemia, stable. PLAN: Medication based on GFR appropriate. Job ID: [id number]
[2020-04-30] MEDS: Heparin 5,000 UNITS/ML VIAL SC SCH ×2 (12:40→12:44)
[2020-04-30] MEDS: Carvedilol 6.25 MG TAB PO SCH (12:45)
[2020-04-30] MEDS: Ondansetron PF 4 MG/2 ML Vial IVP PRN (12:51)
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
[2020-04-30 16:13] VITALS: BP 139/67; TEMP 98.4
--- NOTE | 2020-04-30 16:30 | MRI ---
Exam: Brain MRI without contrast HISTORY: Vertigo. Vomiting. Evaluate for CVA. COMPARISON: None FINDINGS: Calvarial marrow signal intensity: Appropriate T1 signal Gradient echo sequence: No hemorrhage Brain parenchyma: No mass, mass effect or midline shift. Brain volume, age-appropriate. Cortical betancur-white matter differentiation: Preserved Restricted diffusion: Central arterial flow voids are maintained. Absent restricted diffusion White matter signal intensities: T2, FLAIR white matter hyperintensities due to chronic small vessel ischemic changes Sinuses: Adequate aeration of the paranasal sinuses and mastoid air cells. IMPRESSION: Absent restricted diffusion. No acute infarct.
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
[2020-05-03 15:38] LABS: ANA Symphony (Qualitative) Negative (Negative); ANA Symphony (Quantitative) 0.3 Ratio (< 0.7 Negative); dsDNA IgG Antibody 1.5 IU/mL (<10 Negative)
== END 2020-04-30 17:39 | disposition home or self-care (01) | DRG 640 ==
LOC: ERS 15:02 → ERHOLD 18:54 → 2NO 04-29 03:02 → OBSVTOIN 04-29 16:27
PROVIDERS: ADMIT Internal Medicine; ATTEND Internal Medicine
PROC: 5A1D70Z Performance of Urinary Filtration, Intermittent, Less than 6 Hours Per Day (ICD-10-PCS; principal; 2020-04-30)
DX: E87.5 Hyperkalemia (principal); N18.6 End stage renal disease; I12.0 Hypertensive chronic kidney disease with stage 5 chronic kidney disease or end stage renal disease; R11.2 Nausea with vomiting, unspecified; E87.1 Hypo-osmolality and hyponatremia; R42 Dizziness and giddiness; E78.5 Hyperlipidemia, unspecified; F31.9 Bipolar disorder, unspecified; E10.22 Type 1 diabetes mellitus with diabetic chronic kidney disease; Z96.41 Presence of insulin pump (external) (internal); F41.9 Anxiety disorder, unspecified; Z98.890 Other specified postprocedural states; Z99.2 Dependence on renal dialysis; Z91.013 Allergy to seafood; Z79.899 Other long term (current) drug therapy; Z79.890 Hormone replacement therapy; Z79.4 Long term (current) use of insulin; Z90.89 Acquired absence of other organs; D63.1 Anemia in chronic kidney disease; Z83.3 Family history of diabetes mellitus; E10.65 Type 1 diabetes mellitus with hyperglycemia; Z20.822 Contact with and (suspected) exposure to COVID-19
CPT/HCPCS: 36415; 36416; 70450; 70551; 71045; 76705; 80048; 80053; 82533; 83690; 83735; 84443; 84484; 85025; 86038; 86225; 87635; 90935; 93005; 95712; 95816; 95819; 95957; G0257; J1644; J1815; J2405; Q0162; U0003; U0005